=== PATIENT | male | born 1955 | race Caucasian/White ===

== ENCOUNTER 2017-04-07 13:07 | Emergency (ER) | payer OTHER ==
[~2017-04-07] VITALS: Ht 185.4 cm; Wt 136.1 kg
[~2017-04-07 13:07] MED LIST: CLARITIN10 MG PO; CYCLOBENZAPRINE10 MG PO; EXCEDRIN TENSI1 EACH PO; HTN MEDICATION; METFORMIN HCL500 MG PO; NORCO 5-325 TA1 EACH PO
[2017-04-07] MEDS ORDERED: LOSARTAN-HCTZ1 EAC1 PO (13:36)
[2017-04-07] MEDS ORDERED: COZAAR50 MG PO (13:36)
[2017-04-07] MEDS ORDERED: CYCLOBENZAPRINE10 MG PO (15:18)
[2017-04-07] MEDS ORDERED: NORCO 7.5-3251 EACH PO (15:18)
[2017-04-07] MEDS ORDERED: NAPROSYN500 MG PO (15:18)
[2017-04-07] MEDS ORDERED: MEDROL4 M1 PO (15:18)
== END 2017-04-07 15:25 | disposition home or self-care (01) ==
LOC: ED 13:07
DX: M54.9 Dorsalgia, unspecified (principal); I10 Essential (primary) hypertension; Z90.49 Acquired absence of other specified parts of digestive tract; Z88.5 Allergy status to narcotic agent; Z79.899 Other long term (current) drug therapy
CPT/HCPCS: 71045; 74176; 80053; 81001; 83690; 85025; 96361; 96374; 96375; 96376; 99284; J1885; J2270; J2405; J7030

== ENCOUNTER 2018-05-10 11:31 | Emergency (ER) | payer OTHER ==
[~2018-05-10] VITALS: Ht 185.4 cm; Wt 136.1 kg
[~2018-05-10 11:31] MED LIST changes: +COZAAR50 MG PO; +LOSARTAN-HCTZ1 EAC1 PO; +MEDROL4 M1 PO; +NAPROSYN500 MG PO; +NORCO 7.5-3251 EACH PO
[2018-05-10] MEDS ORDERED: NORCO 5-325 TA1 EACH PO (12:49)
[2018-05-10] MEDS ORDERED: METHYLPREDNISOLO4 M1 PO (12:49)
== END 2018-05-10 13:35 | disposition home or self-care (01) ==
LOC: ED 11:31
DX: M25.511 Pain in right shoulder (principal); I10 Essential (primary) hypertension; Z88.5 Allergy status to narcotic agent
CPT/HCPCS: 73030; 99283

== ENCOUNTER 2020-05-09 00:37 | Observation (INO) | payer SELFPAY ==
[~2020-05-09] VITALS: Ht 185.4 cm; Wt 128.4 kg
[~2020-05-09 00:37] MED LIST changes: +COZAAR100 MG PO; +CYMBALTA30 MG PO; +HYDROCODON-ACE1 EA11 PO; +METHYLPREDNISOLO4 M1 PO
[2020-05-09] MEDS ORDERED: HYDROCHLOROTHIA25 MG PO (00:59)
[2020-05-09] MEDS ORDERED: EXCEDRIN EXTRA1 EAC1 PO ×2 (01:44)
--- NOTE | 2020-05-09 04:33 | NUR ---
PATIENT ARRIVED TO THE UNIT AT 0410. PATIENT DENIES FEELING [facility]HEAD[facility] VS STABLE. PATIENT REPORTS ONLY A MILD HEADACHE. IV FLUIDS STARTED PER ORDER. PATIENT DENIED NAUSEA OR ABD PAIN. BOWEL SOUNDS ARE ACTIVE. ABD IS SOFT. PATIENT ORIENTED TO THE ROOM. DENIED ANY FURTHER NEEDS. CALL LIGHT IN HAND.
--- NOTE | 2020-05-09 05:15 | NUR ---
PATIENT UP TO BSC. PATIENT DENIES FEELING LIGHTHEADED OR DIZZY. HR INCREASED FROM 70'S TO 120 WITH ACTIVITY. PATIENT VOIDED ONLY AND RETURNED TO BED.
--- NOTE | 2020-05-09 07:45 | NUR ---
PT IS AWAKE AND ALERT X4, COOPERATIVE. PT REQUIRES MINIMAL ASSISTANCE WITH CORD MANAGEMENT, THEN IS INDEPENDENT UP TO COMMODE AND BACK TO BED. PT DENIES NAUSEA AND SOB. REPORTS SOME MILD CRONIC SHOULDER AND BACK PAIN.
--- NOTE | 2020-05-09 08:26 | NUR ---
BOTH IV SITES ARE INTACT, NO REDNESS OR SWELLING NOTED, PT DENIES PAIN AT EITHER SITE. PT IS ALERT AND ORIENTED X4, COOPERATIVE. PT ABLE TO GET TO BEDSIDE COMMODE INDEPENDENTLY, USES CALL LIGHT APPROPRIATELY. PT C/O 5/10 BILAT SHOULDER AND BACK DISCOMFORT, 500 MG PO TYLENOL GIVEN. ALL VITALS ARE WNL. PT DENIES SOB AND DIZZINESS.
--- NOTE | 2020-05-09 09:15 | NUR ---
SPOKE WITH PATIENT IN ROOM. PATIENT AWAKE AND WATCHING TV. PATIENT LIVES WITH SPOUSE. SHE WILL PROVIDE RIDE HOME AT DISCHARGE. HIS PREFERENCE FOR DISCHARGE IS HOME. HE USES NO DME CURRENTLY EXCEPT THEY HAVE A SHOWER CHAIR. HE IS AWARE OF [facility] TO [facility]ORROW DME THEY USED IT AFTER A SURGERY HIS HAD. HE IS EMPLOYED, DRIVES SELF. HE HAS PCP. HE HAS NO INSURANCE CURRENTLY, AND HE CHOOSES THIS. HE STATES HE MAKES TOO MUCH FOR OHP. HE HAS BOUGHT POLICIES IN THE PAST THROUGH HOME BUT AFTER TIME THEY KEPT RAISING THE PREMIUMS TO HIGH. 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 HE FEELS HE CAN AFFORD MEDS/FOOD/UTILITIES. NO KNOWN BARRIERS AT THIS TIME TO DISCHARGE HOME.
--- NOTE | 2020-05-09 09:32 | NUR ---
PT CALLS APPROPRIATELY. REQUESTS TO GET UP TO BEDSIDE COMMODE, NEEDS ASSISTANCE WITH MONITOR CABLES ONLY. PT ABLE TO VOID. PT JORDAN 100% OF CLEAR LIQUID BREAKFAST. PT REMAINS ALERT AND ORIENTED X4, COOPERATIVE. PT REPORTS ON PAIN RELIEF FROM TYLENOL.
--- NOTE | 2020-05-09 11:10 | NUR ---
PATIENT ASKED FOR MY RETURN TO ROOM. SPOKE WITH HIM AGAIN AND HE STATES HE WAS THINKING IT WOULDN'T HURT TO SEE IF HE QUALIFIES FOR OHP AGAIN. I TOLD HIM I WOULD CALL OUR INSURANCE SPECAILIST SEDA AND LET HER KNOW. CALLED SEDA, SHE WILL COME SEE PATIENT.
--- NOTE | 2020-05-09 11:48 | NUR ---
PT SITTING UP IN BED WITH AT THE BEDSIDE. PT REPORTS "THAT TYLENOL DID NOTHING FOR MY PAIN" REFERING TO CRONIC BACK AND BILAT SHOULDER PAIN. WAITING FOR PRESCRIPTION HISTORY FROM PT'S HOME PHARMACY [facility] TO VERIFY WHAT NARCOTIC PAIN MEDICATIONS PT TAKES AT HOME. THEN WILL DISCUSS WITH .
--- NOTE | 2020-05-09 12:02 | NUR ---
PT'S JUST ARRIVED TO VISIT PT. HE IS ALERT, ORIENTED AND VERY OUTSPOKEN. PT DIDN'T SLEEP WELL, AND FEELS HE DID THE RIGHT THING HAVING HIS BRING HIM IN. WAITING NOW ON DR FINE, SORT OF PATIENTLY. GAVE BLESSING, REQUESTED THE MUSIC IN HALLWAY BE TURNED DOWN, SO NOTED. WILL FOLLOW
--- NOTE | 2020-05-09 12:26 | NUR ---
RECEIVED CALL FROM SEDA WHO STATES PATIENT IS OVER INCOME FOR OHP. PATIENT IS AWARE.
--- NOTE | 2020-05-09 14:43 | NUR ---
pt up to bedside commode multiple times to void in the last 2.5 hours, pt independent up to commode and back to bed. pt spouse is at the bedside.
--- NOTE | 2020-05-09 14:58 | NUR ---
IN PT ROOM FOR CONSULT. PT'S IS ALSO AT THE BEDSIDE.
[2020-05-09] MEDS ORDERED: VOLTAREN ARTHRI20 GM TOP (15:45)
--- NOTE | 2020-05-09 15:45 | NUR ---
MED REC COMPLETE
--- NOTE | 2020-05-09 16:12 | NUR ---
BOTH PT IV SITES ARE INTACT, NO REDNESS OR SWELLING NOTED, FLUIDS AND FLUSHES INFUSE EASILY. PT DENIES NAUSEA AND SOB, HOWEVER REPORTS "MY BACK AND SHOULDER PAIN IS STARTING TO CREEP BACK UP". PT REMAINS ALERT AND ORIENTED X4, COOPERATIVE. VITALS ARE ALL WNL.
--- NOTE | 2020-05-09 18:03 | NUR ---
PT OFFERED 2 TABS OF NORCO AT THIS TIME FOR 7/10 BILAT SHOULDER AND BACK PAIN THAT IS CRONIC. PT STATES "I'LL TAKE ONE, AND THEN IF THAT DOESN'T QUITE CUT IT, I'LL CALL FOR THE OTHER ONE". PT IS CURRENTLY WORKING ON CLEAR LIQUID DINNER TRAY. PT REMAINS ALERT AND ORIENTED. PT DENIES NAUSEA AND SOB AT THIS TIME VITALS ARE WNL. PT HAS BEEN UP TO THE BEDSIDE COMMODE MULTIPLE TIMES FOR LIQUID BM IN THE LAST 1.5 HOURS.
--- NOTE | 2020-05-09 20:03 | NUR ---
DISCUSSED PATIENT WITH WHO REQUEST THAT THE PATIENT DRINK A SECOND BOTTLE OF THE MIRALAX. DISCUSSED WITH PATIENT AND PROVIDED MEDICATION.
--- NOTE | 2020-05-09 20:20 | NUR ---
LABS DRAWN FROM RIGHT FA IV SITE. COLLECTED BY RN AND HANDED TO LAB STAFF. PATIENT DENIED ANY REQUEST.
--- NOTE | 2020-05-09 20:39 | NUR ---
PATIENT PROVIDED WITH SCHUELED MEDS. BSC EMPTIED FOR SOME LIQUID TERRANCE AND URINE MIXED. PATIENT DRINKING ON MIRALAX. IV FLUIDS PER ORDER, SITE WNL. PATIENT DENIES NAUSEA. REPORTS PAIN IN SHOULDER AND BACK IMPROVED. VS STABLE.
--- NOTE | 2020-05-09 22:10 | NUR ---
patient continues to have liquid stool that is ayala in color. no signs of bleeding. finished miralax dose.
--- NOTE | 2020-05-09 23:40 | NUR ---
PT ARRIVES TO ROOM FROM CCU. VS COMPLETED. IN ROOM. NO OTHER NEEDS AT THIS TIME. CALL LIGHT IN REACH.
--- NOTE | 2020-05-09 23:45 | NUR ---
PT ARRIVED TO THE FLOOR FROM CCU VIA BED, VITALS COMPLETED
--- NOTE | 2020-05-10 00:12 | NUR ---
PT STATES HE HAS 6/10 BACK PAIN, PRN PAIN MED PROVIDED. NO OTHER NEEDS AT THIS TIME. CALL LIGHT IN REACH.
--- NOTE | 2020-05-10 02:00 | NUR ---
PT AWAKE IN ROOM, WATCHING TV. NO NEEDS AT THIS TIME. CALL LIGHT IN REACH.
--- NOTE | 2020-05-10 05:49 | NUR ---
ASSESSMENT, VS AND I&O COMPLETED. PT STATES HE HAS A 5/10 HEADACHE BUT THAT IT IS TOLERABLE. ABD FIRM, OBESE, BOWEL TONES ACTIVE. PT HAD RAINEY-CLEAR BM IN THE BSC. CMS INTACT. PT DECLINES TO WEAR SCDs HE GETS UP TO THE BSC OFTEN. IVs WNL, IV FLUIDS INFUSING PER ORDER. NO OTHER NEEDS AT THIS TIME. CALL LIGHT IN REACH.
--- NOTE | 2020-05-10 06:15 | NUR ---
PT VSS, UOS. IVs WNL. LAST STOOL APPEARED RAINEY-CLEAR IN COLOR AND LIQUID ABOUT 0200. PT HAS HAD HEADACHE AND BACK PAIN, MANAGED WITH PRN MEDS. PT HAS BEEN MPO SINCE MIDNIGHT.
--- NOTE | 2020-05-10 07:31 | CONS ---
[facility] [address], [place] [address] Signed DATE OF CONSULTATION: 05/09/2020 CHIEF COMPLAINT: Rectal bleeding. HISTORY OF PRESENT ILLNESS: Isidro is a 64-year-old obese gentleman who awoke around midnight with diarrhea and bright red blood per rectum. He said that he really had no nausea or vomiting or abdominal pain. He came to emergency room for evaluation. He was admitted to the Internal Medicine Service. Initial hemoglobin was 14.6, it is down to 12.9 with hydration and p.o. intake. The mean cell volume is good at 86. BUN is good at 13. Liver function tests, INR all fine. He is already started on his bowel prep and I was asked to see him as a general surgeon on-call for consideration of upper and lower endoscopy. Although, I have helped Isidro's with endoscopy, he himself has never had upper or lower endoscopy. PAST MEDICAL HISTORY: 1. Hypertension. 2. Seasonal allergies. 3. Bilateral chronic shoulder pain. PAST SURGICAL HISTORY: Includes: 1. Bilateral ankle surgery. 2. Bilateral Achilles tendons, left meniscus. 3. Laparoscopic cholecystectomy. 4. Laminectomy from L4 down to S1. 5. Bilateral mandibular surgery with metal wire in his mouth. SOCIAL HISTORY: He does not smoke or drink. He is to Valerie at [phone]. They have no children. 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 They prefer [facility]. Dr. Afshan Jaime is primary care provider. FAMILY HISTORY: He gives no family history, although he told me his mother and father had . REVIEW OF SYSTEMS: He said despite all his surgery, he has had MRIs even with the wire in his mandible. That may be a CT scan, although he felt it was an MRI. ALLERGIES: Codeine. Electronically Signed By: DARCY FINE MD 05/10/20 0731 PATIENT NAME: AGUILA BRITO CONSULTATION DATE OF : 57 REPORT #: [id number] PHYSICIAN: DARCY FINE MD PCP: AFSHAN JAIME MD REPORT IS CONFIDENTIAL AND NOT TO BE RELEASED WITHOUT AUTHORIZATION [facility] [address] [place], [place] [address] Signed MEDICATIONS: 1. Loratadine. 2. Losartan. 3. Hydrochlorothiazide. 4. Excedrin Extra b.i.d., which includes aspirin and Tylenol. PHYSICAL EXAMINATION: VITAL SIGNS: His blood pressure is 133/87, heart rate 70, respiratory rate 13, temperature is 98.6. He is 97% on room air. He is 6 feet 1 inches tall, 120 kg. GENERAL: Isidro is a 64-year-old gentleman, who appears about his stated age. He is a very full heavy pedersen. He is lying supine semi-recumbent in his hospital bed, watching TV. His is at the bedside. LUNGS: Clear to auscultation bilaterally. HEART: Regular rate and rhythm. ABDOMEN: Quite protuberant and obese, but soft. RECTAL: Not repeated currently. LABORATORY DATA: His white blood count is 7.7, hemoglobin is 14.6, it is down to 12.9, mean cell volume is good at 86, BUN 13, creatinine 1.04. Liver function tests are negative, albumin 3.9. COVID is negative. INR is 1.0. ASSESSMENT AND PLAN: Isidro is a 64-year-old gentleman who presents with some diarrhea and rectal bleeding while taking Excedrin twice a day for several years. Overall, he seems to be doing well and has been hemodynamically stable. He is about fpc through the bowel prep. He has had to have any additional bowel movement. I explained him upper and lower endoscopy. His reminded me that I helped her with her endoscopies. They understand there is risk including, but not limited to gas bloating, crampy abdominal pain, bleeding, perforation requiring surgery, and missed diagnosis. Also given his full-size heavy face and pedersen, we will ask an anesthesia provider to help us with increased monitoring and sedation with propofol. Hopefully, we will be able to schedule this for the morning depending on his bowel prep. They have expressed understanding and agreed with the above plan. Darcy Fine MD ALB/MODL /[id number] Electronically Signed By: DARCY FINE MD 05/10/20 0731 PATIENT NAME: AGUILA BRITO CONSULTATION DATE OF : 57 REPORT #: [id number] PHYSICIAN: DARCY FINE MD PCP: AFSHAN JAIME MD REPORT IS CONFIDENTIAL AND NOT TO BE RELEASED WITHOUT AUTHORIZATION [address] [address] Signed cc: MD Afshan Tolentino MD Copies: DARCY FINE MD ~ Electronically Signed By: DARCY FINE MD 05/10/20 0731 PATIENT NAME: AGUILA BRITO CONSULTATION DATE OF : 57 REPORT #: [id number] PHYSICIAN: DARCY FINE MD PCP: AFSHAN JAIME MD REPORT IS CONFIDENTIAL AND NOT TO BE RELEASED WITHOUT AUTHORIZATION
--- NOTE | 2020-05-10 07:57 | NUR ---
REPORT RECEIVED FROM NIGHT RN AND PT. CARE RESUMED. PT. AMBULATING INDEPENDENTLY TO BEDSIDE COMMODE AND HAS A RAINEY LIQUID STOOL. LABS DRAWN BY THIS NURSE. PT. UP TO BEDSIDE COMMODE A SECOND TIME. STATES HE HAS TOLERABLE SHOULDER PAIN AND REPOSITIONED. LEFT RESTING WITH CALL LIGHT IN REACH.
--- NOTE | 2020-05-10 08:30 | NUR ---
REPORT RECEIVED FROM NIGHT RN AND PT. CARE RESUMED. PT. REPORTS 09/06 PAIN FROM HEADACHE AND CHRONIC BACKPAIN. ADMIN. NORCO. PT. ALERT AND ORIENTED. LUNGS CLEAR. PT. DENIES AND PAIN OR TENDERNESS IN ABD. BOWEL TONES ACTIVE. PT. HAD A WATERY BM WITH BLOOD. NO EDEMA. PT. CONCERNED ABOUT A SMALL PINPOINT BUMP ON LEFT CALF AND ASKED FOR A DRESSING TO BE PLACED OVER IT TO PREVENT IT FROM OPENING. PLACED A SMALL ALLEVYN OVER IT. PT. LEFT RESTING IN BED WITH CALL LIGHT IN REACH.
--- NOTE | 2020-05-10 10:01 | NUR ---
PATIENT IS IN SURGERY CANNOT DO VITALS AT THIS TIME
--- NOTE | 2020-05-10 10:10 | NUR ---
05/10/20 1010 June Ramsey 0959 PATIENT INTO PACU, WITH ORAL AIRWAY IN PLACE. DOES NOT RESPOND TO PHYSICAL OR VERBAL STIMULI. 1008 PATIENT GROANS TO VERBAL STIMULI. RESTING ON LEFT SIDE. PASSING ACTIVE FLATUS.
--- NOTE | 2020-05-10 10:51 | NUR ---
PATIENT BACK FROM UPPER AND LOWER SCOPE. REPORT RECEIVED FROM PACU NURSE, BRIA. PT. ARRIVED VIA STRETCHER. VITAL SIGNS STABLE. PT. DENIES PAIN. BOWEL TONES ACTIVE AND ABDOMEN SOFT, NON-TENDER. IN THE ROOM. PT. EDUCATED ON SAFETY. LEFT RESTING IN BED WITH CALL LIGHT IN REACH.
--- NOTE | 2020-05-10 11:23 | OR ---
[facility] [address] [place], [place] [address] Signed DATE OF OPERATION: 05/10/2020 SURGEON: Darcy Fine MD PREOPERATIVE DIAGNOSES: 1. Diarrhea. 2. Rectal bleeding. 3. Anemia with hemoglobin 12.9 and mean cell volume 89. POSTOPERATIVE DIAGNOSES: 1. Four small antral gastric ulcers. 2. Mild distal gastritis. 3. Pandiverticulosis. 4. Moderate internal hemorrhoids. 5. 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 6. A 12 mm pedunculated polyp at proximal right colon. 7. 4 mm polyp at 100 cm. 8. 5 mm polyp at hepatic flexure. 9. 5 mm polyp at cecum. 10. 4 mm polyp in right colon. 11. 6 mm polyp at 80 cm. 12. 4 mm polyp at 10 cm. PROCEDURES: 1. EGD with CLOtest and biopsies of the pyloric bulb and antrum. 2. Colonoscopy with snare polypectomy and hot biopsy as well as injection of tattoo. ESTIMATED BLOOD LOSS: Minimal. INDICATIONS: Isidro is a 64-year-old gentleman who came into the emergency room with some diarrhea and rectal bleeding. He said there was no nausea, vomiting, or abdominal pain. He was admitted to the Internal Medicine service. I have been asked to see him as a general surgeon on-call. With hydration, his hemoglobin is slightly low at 12.9 with a mean cell volume normal at 86. BUN was fine at 13. Liver function tests were fine and his albumin was good at 3.9. His COVID came back negative. I met with Isidro and his here in the hospital. They reminded me that I helped his with endoscopy previously. However, Isidro has never had a previous upper or lower endoscopy. I explained to them the nature of the two tests along with the risks including, but not Electronically Signed By: DARCY FINE MD 05/10/20 1123 PATIENT NAME: AGUILA BRITO OPERATIVE REPORT DATE OF : 57 REPORT #: [id number] PHYSICIAN: DARCY FINE MD PCP: AFSHAN PACHECO MD REPORT IS CONFIDENTIAL AND NOT TO BE RELEASED WITHOUT AUTHORIZATION [facility] [address] [place], [place] [address] Signed limited to gas bloating, crampy abdominal pain, bleeding, perforation requiring surgery, and missed diagnosis. They had expressed understanding and wished to proceed. DESCRIPTION OF PROCEDURE: Isidro was taken into the operating room and placed in the supine semi-recumbent position. He is a very large man with a very heavy full face pedersen, chest and abdomen. Consequently, we had an anesthesia provider to help us with increased monitoring and sedation with propofol. That proved to be a maria decision. A bite block was utilized for the case. The posterior oropharynx was anesthetized with lidocaine spray. A bite block was utilized for the case. The adult gastroscope was introduced and advanced all the way out into the third portion of the duodenum without difficulty. The duodenum and pyloric channel were generally unremarkable. There may have been a little irritation at the pyloric bulb, so took one biopsy at that area. However, the stomach showed multiple small ulcers 4 or 5 at the base of the antrum. Very classic for aspirin. He is using daily Excedrin for several years. None of these are bleeding. They will heal fine as soon as he stops the aspirin. We took a biopsy in this area for pathologic review as well as CLOtest. The incisura body and fundus of the stomach were unremarkable. Upon retroflexion of scope, there was no additional pathology noted up around the cardia. There was no obvious hiatal hernia. The scope was withdrawn up through the area of the GE junction, which was compliant without stricture. There was no gastric or esophageal varices. No disruption to the Z-line. No Rose's mucosa. No distal esophagitis. The middle and upper esophagus were unremarkable. After this, the gas was suctioned out and the gastroscope removed. Isidro tolerated his upper endoscopy quite well. Isidro was then rotated into the left lateral decubitus position. He was maintained on IV sedation with propofol per our nurse cat scan technologist. A digital rectal exam was performed and he does have a moderately indurated and enlarged prostate gland. The adult colonoscope was then introduced and advanced all around into the cecum under direct visualization of camera with some mild abdominal compression. His prep was good. We could easily see the appendiceal orifice and the ileocecal valve. The scope was then slowly withdrawn. The above-mentioned polyps were mostly removed with the help of hot biopsy forceps. We did use the snare for the pedunculated polyp in the proximal right colon. We also found his nearly circumferential tumor back at 35 cm. We took multiple cold biopsies of this tumor and then placed a tattoo in the distal end of that tumor at 35 cm. We can also see that he has moderate diverticula throughout the entire colon. Interestingly, he does not seem to have any diverticula distal to the tumor down toward the top of the rectum. Once in the rectum, the scope had been retroflexed and he does have moderate internal hemorrhoids as well. After this, the gas was suctioned out and the colonoscope removed. Isidro tolerated the procedure quite well. RECOMMENDATIONS: Isidro will be returned to his room and start him back on diet. He will need a CEA Electronically Signed By: DARCY FINE MD 05/10/20 1123 PATIENT NAME: AGUILA BRITO OPERATIVE REPORT DATE OF : 57 REPORT #: [id number] PHYSICIAN: DARCY FINE MD PCP: AFSHAN PACHECO MD REPORT IS CONFIDENTIAL AND NOT TO BE RELEASED WITHOUT AUTHORIZATION [address] [place], [place] [address] Signed level drawn. He will need an outpatient CT scan of the chest, abdomen and pelvis and need a sigmoid resection for his tumor. MD MIRELA Tolentino/KARONL /[id number] cc: MD Afshan Tolentino MD Copies: DARCY FINE MD ~ Electronically Signed By: DARCY FINE MD 05/10/20 1123 PATIENT NAME: AGUILA BRITO OPERATIVE REPORT DATE OF : 57 REPORT #: [id number] PHYSICIAN: DARCY FINE MD PCP: AFSHAN PACHECO MD REPORT IS CONFIDENTIAL AND NOT TO BE RELEASED WITHOUT AUTHORIZATION
--- NOTE | 2020-05-10 11:55 | NUR ---
PATIENT STATES HE HAS A "BAD" HEADACHE. REFUSED TYLENOL AND STATES IT DOES NOT WORK. WILL WAIT FOR [place] WHEN IT IS AVAILABLE. PT. STATES HE HAS AMBULATED INDEPENDENTLY TO THE BATHROOM TWICE AND DENIES DIZZINESS. HE STATES HE STILL HAS A SMALL AMOUNT OF WATERY DIARRHEA. IN ROOM.
--- NOTE | 2020-05-10 12:00 | NUR ---
ALL DISCHARGE INSTRUCTIONS REVIEWED WITH PATIENT AND ALL QUESTIONS ANSWERED. PRESENT. LEFT BY WHEEL CHAIR AND PICKED UP BY CAR. PT. LEFT WITH ALL BELONGINGS, DENIES PAIN.
[2020-05-10] MEDS ORDERED: PROTONIX40 MG PO ×2 (12:47)
--- NOTE | 2020-05-15 15:35 | PATH ---
[facility] [address], [place] [address] Signed THIS IS AN ADDENDUM REPORT SPECIMEN(S): A DUODENAL BULB BIOPSY SPECIMEN(S): B ANTRUM/PYLORUS BIOPSY SPECIMEN(S): C PROXIMAL ASCENDING COLON POLYP SPECIMEN(S): D COLON POLYP AT 100 CM SPECIMEN(S): E HEPATIC FLEXURE COLON POLYP SPECIMEN(S): F CECUM COLON POLYP SPECIMEN(S): G MID ASCENDING COLON POLYP SPECIMEN(S): H COLON POLYP AT 80 CM SPECIMEN(S): I COLON POLYP MASS AT 35 CM SPECIMEN(S): J COLON POLYP AT 10 CM SPECIMEN SOURCE: A. DUODENAL BULB BIOPSY B. ANTRUM/PYLORUS BIOPSY C. PROXIMAL ASCENDING COLON POLYP D. COLON POLYP AT 100 CM E. HEPATIC FLEXURE COLON POLYP F. CECUM COLON POLYP G. MID ASCENDING COLON POLYP H. COLON POLYP AT 80 CM I. COLON POLYP MASS AT 35 CM J. COLON POLYP AT 10 CM CLINICAL HISTORY: Diarrhea, rectal bleeding, anemia, GI bleed. DX: Gastric ulcer x 4, gastritis/polyps, pandiverticulosis. MICROSCOPIC DESCRIPTION: Histologic sections of all submitted blocks are examined by light microscopy. These findings, together with the gross examination, support the pathologic diagnosis. FINAL PATHOLOGIC DIAGNOSIS: A. Duodenum, bulb, biopsy: - Duodenal mucosa with mild peptic injury. B. Stomach, antrum/pylorus, biopsy: - Gastric antral mucosa with no significant pathologic changes. - Negative for Helicobacter pylori with HE stains. C. Colon, proximal ascending, polypectomy: - Tubulovillous adenoma with high-grade dysplasia. PATIENT NAME: AGUILA BRITO PATHOLOGY DATE OF : 57 REPORT #: [id number] PHYSICIAN: [facility] PCP: MARIETTA PACHECO MD REPORT IS CONFIDENTIAL AND NOT TO BE RELEASED WITHOUT AUTHORIZATION [facility] [address], [place] [address] Signed D. Colon, 100 cm, polypectomy: - Tubular adenoma. E. Colon, hepatic flexure, polypectomy: - Tubular adenoma. F. Cecum, polypectomy: - Sessile serrated polyp. G. Colon, mid ascending, polypectomy: - Colonic mucosa with no significant pathologic changes. H. Colon, 80 cm, polypectomy: - Tubular adenoma. I. Colon, 35 cm, polypectomy: - Invasive adenocarcinoma, well differentiated. - See comment. J. Colon, 10 cm, polypectomy: - Colonic mucosa with no significant pathologic changes. COMMENT: As part of [facility]' Quality Improvement Program, this case was reviewed by Dr. Leona Acuna another member of our pathology staff. BRP:NRT:bg:vlg:C2NR (I) Screening for microsatellite instability by immunohistochemistry has been ordered and will be reported in an addendum. A diagnostic alert is initiated by Dr. Dr. Sammy San on 05/14/2020. GROSS DESCRIPTION: Ten specimens are received in ten containers, labeled "GC." A. The specimen, labeled "GC, duodenal bulb biopsy," is received in formalin and consists of one ayala soft tissue fragment that measures 0.4 cm in greatest dimension. The specimen is entirely submitted in cassette (A1). B. The specimen, labeled "GC, antrum biopsy," is received in formalin and consists of two ayala soft tissue fragments that measure 0.1 cm in greatest dimension. The specimen is entirely submitted in cassette (B1). C. The specimen, labeled "GC, proximal ascending colon polyp," is received in formalin and consists of one ayala soft tissue fragment that measures 1.6 cm in greatest dimension. The specimen is trisected and entirely submitted in cassette (C1). D. The specimen, labeled "GC, colon polyp at 100 cm," is received in formalin and consists of one ayala soft tissue fragment that measures 0.2 cm in greatest dimension. The specimen is entirely submitted in cassette (D1). PATIENT NAME: AGUILA BRITO PATHOLOGY DATE OF : 57 REPORT #: [id number] PHYSICIAN: ZEN PARMAR PCP: MARIETTA PACHECO MD REPORT IS CONFIDENTIAL AND NOT TO BE RELEASED WITHOUT AUTHORIZATION [facility] [address], [place] [address] Signed E. The specimen, labeled "GC, hepatic flexure polyp," is received in formalin and consists of one ayala soft tissue fragment that measures 0.2 cm in greatest dimension. The specimen is entirely submitted in cassette (E1). F. The specimen, labeled "GC, cecum polyp," is received in formalin and consists of three ayala soft tissue fragments that measure 0.2 cm in greatest dimension. The specimen is entirely submitted in cassette (F1). G. The specimen, labeled "GC, mid ascending colon polyp," is received in formalin and consists of one ayala soft tissue fragment that measures 0.2 cm in greatest dimension. The specimen is entirely submitted in cassette (G1). H. The specimen, labeled "GC, colon polyp at 80 cm," is received in formalin and consists of one ayala soft tissue fragment that measures 0.3 cm in greatest dimension. The specimen is entirely submitted in cassette (H1). I. The specimen, labeled "GC colon polyp at 35 cm," is received in formalin and consists of three ayala soft tissue fragments that measure 0.2-0.3 cm in greatest dimension. The specimen is entirely submitted in cassette (I1). J. The specimen, labeled "GC, colon polyp at 10 cm," is received in formalin and consists of one ayala soft tissue fragment that measures 0.2 cm in greatest dimension. The specimen is entirely submitted in cassette (J1). JS (under the direct supervision of a pathologist) The Gross Description was prepared using a voice recognition system. The report was reviewed for accuracy; however, sound-alike word errors, addition and/or deletions may occur. If there is any question about this report, please contact Client Services. PERFORMING LABORATORY: The technical component was performed by [facility], [address] [place] [id number] (Supervisor Filter Assembly: Serena Diaz MD; CLIA# [id number]). [facility], [address] [place] [address] (CLIA# [id number]). COMMENT: Tumor cells show no loss of nuclear expression of MMR proteins. This correlates with a low probability of microsatellite instability. 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 Please contact [facility] if such testing is indicated. BRP:cml ADDITIONAL NOTES: Immunohistochemical and/or in situ hybridization studies were performed on this case with the appropriate positive controls that react as expected. This test was developed and its performance characteristics determined by [facility]. It has not been cleared or approved by the U.S. Food and Drug Administration. The FDA has determined that such clearance or approval is not necessary. This test is used for clinical purposes. It should not be regarded as investigational or for research. [facility] is certified under the Clinical Laboratory Improvement Amendments of 1988 (CLIA) as qualified to perform high complexity clinical laboratory testing. REASON FOR ADDENDUM: To add results of additional testing. ADDENDUM PATHOLOGIC DIAGNOSIS: Colon, 35 cm polypectomy, adenocarcinoma, microsatellite instability testing by IHC: - MLH1: Intact nuclear expression. - MSH2: Intact nuclear expression. - MSH6: Intact nuclear expression. - PMS2: Intact nuclear expression. INTERPRETATION: Normal pattern. ADDENDUM MICROSCOPIC EXAMINATION: A panel of four antibodies is selected which will detect 95% of microsatellite unstable carcinomas. Testing is performed at the request of Sammy San M.D. Block: I1. Recut HE slide is prepared from the block. The presence of neoplastic glands and non-neoplastic internal control glands or stroma is confirmed. Internal control cells for MLH1, MSH2, PMS2 and MSH6 are positive. Neoplastic gland cells show the following: - MLH1: Positive. - MSH2: Positive. - MSH6: Positive. PATIENT NAME: AGUILA BRITO PATHOLOGY DATE OF : 57 REPORT #: [id number] PHYSICIAN: ZEN PATHOLOGY PCP: MARIETTA PACHECO MD REPORT IS CONFIDENTIAL AND NOT TO BE RELEASED WITHOUT AUTHORIZATION [facility] [address], [place] [address] Signed - PMS2: Positive. BRP:cml [facility] [place], [place]. Professional interpretation was performed by [facility], [address] [address] (CLIA# [id number]). Diagnostician: Sammy San MD Pathologist Electronically Signed 05/15/2020 Copies: ~ PATIENT NAME: AGUILA BRITO PATHOLOGY DATE OF : 57 REPORT #: [id number] PHYSICIAN: ZEN PARMAR PCP: MARIETTA PACHECO MD REPORT IS CONFIDENTIAL AND NOT TO BE RELEASED WITHOUT AUTHORIZATION
== END 2020-05-10 13:50 | disposition home or self-care (01) ==
LOC: ED 00:37 → CCU 00:39 → MS 23:44
PROVIDERS: Colon & Rectal Surgery; ADMIT Internal Medicine; ATTEND Internal Medicine
PROC: 0DBK8ZX Excision of Ascending Colon, Via Natural or Artificial Opening Endoscopic, Diagnostic (ICD-10-PCS; 2020-05-10)
PROC: 0DBH8ZX Excision of Cecum, Via Natural or Artificial Opening Endoscopic, Diagnostic (ICD-10-PCS; 2020-05-10)
PROC: 0DBL8ZX Excision of Transverse Colon, Via Natural or Artificial Opening Endoscopic, Diagnostic (ICD-10-PCS; 2020-05-10)
PROC: 3E0H8KZ Introduction of Other Diagnostic Substance into Lower GI, Via Natural or Artificial Opening Endoscopic (ICD-10-PCS; 2020-05-10)
PROC: 0DB78ZX Excision of Stomach, Pylorus, Via Natural or Artificial Opening Endoscopic, Diagnostic (ICD-10-PCS; principal; 2020-05-10 08:15)
DX: K57.31 Diverticulosis of large intestine without perforation or abscess with bleeding (principal); K25.9 Gastric ulcer, unspecified as acute or chronic, without hemorrhage or perforation; K29.70 Gastritis, unspecified, without bleeding; K64.8 Other hemorrhoids; I10 Essential (primary) hypertension; G89.4 Chronic pain syndrome; Z88.5 Allergy status to narcotic agent; Z20.822 Contact with and (suspected) exposure to COVID-19; C18.9 Malignant neoplasm of colon, unspecified; D12.2 Benign neoplasm of ascending colon; D12.0 Benign neoplasm of cecum; D12.3 Benign neoplasm of transverse colon
CPT/HCPCS: 36415; 80053; 82378; 85025; 85610; 85730; 86677; 86850; 86900; 86901; 86920; 96374; 96375; 96376; 99156; 99157; 99285-25; C9113; C9803; G0378; J1610; J2001; J2405; J2704; J3010; J7030; J7121; U0003

== ENCOUNTER 2020-05-11 13:08 | Inpatient (IN) | payer SELFPAY ==
[~2020-05-11] VITALS: Ht 185.4 cm; Wt 128.0 kg
[~2020-05-11 13:08] MED LIST changes: +EXCEDRIN EXTRA1 EAC1 PO; +HYDROCHLOROTHIA25 MG PO; +PROTONIX40 MG PO; +VOLTAREN ARTHRI20 GM TOP
--- OUTSIDE RECORDS SUMMARY | 2020-05-11 13:10 | XMS ---
PreManage Notification: AGUILA BRITO Security Mental Health Aides Teacher Events No recent Security Events currently on file CRITERIA MET - [facility] - 2 Visits in 30 Days CARE PROVIDERS There are no care providers on record at this time. Christiano has no Care Guidelines for this patient. [facility] NOTE: Visits indicate total known visits. ED/UCC VISIT TRACKING (12 MO.) [facility] COMPLAINT: - POSSIBLE RECTAL BLEEDING 05/09/2020 00:38 [facility] [place] TYPE: Emergency COMPLAINT: - RECTAL BLEEDING INPATIENT VISIT TRACKING (12 MO.) 05/09/2020 00:39 [facility] [place] TYPE: Observation COMPLAINT: - GI BLEED [email or web address]
--- NOTE | 2020-05-11 16:45 | NUR ---
PT TRANSFERRED TO CCU FROM ER VIA WHEELCHAIR PER PT REQUEST. PT DENIES PAIN OR NAUSEA. AMBULATES INDEPENDENTLY. LUNGS CLEAR, RA. ACTIVE BTX4 QUADRANTS. TOLERATING BOWEL PREP WELL AT THIS TIME. A&OX4. SKIN GROSSLY INTACT. PT TRANSFERS SELF TO BS AND IS PASSING SMALL AMOUNTS OF DARK RED, FOUL SMELLING, LIQUID STOOL. 18 IV TO LEFT AC, FLUSHES EASILY, NO REDNESS OR INFLAMMATION AT INSERTION SITE. PT DECLINES SCD'S DUE TO HIS NEED TO GET OUT OF BED SO OFTEN FOR BM. AT BEDSIDE. CALL LIGHT WITHIN REACH.
--- NOTE | 2020-05-11 19:54 | NUR ---
PATIENT HAS FINISHED BOWEL PREP AND IS HAVING FREQUENT DARK RED THICK LIQUID STOOLS. PATIENT IS INDEPENDENT IN THE ROOM AND IS AT BEDSIDE. NO DIZZINESS, PAIN AND SOB. NO NAUSEA. VS STABLE.
--- NOTE | 2020-05-11 21:04 | NUR ---
PATIENT CONTINUES TO HAVE FREQUENT STOOLS, THINNER AND RED IN COLOR. PATIENT DENIES ANY CONCERNS.
--- NOTE | 2020-05-11 23:00 | NUR ---
PATIENT UP TO THE BATHROOM INDEPENDENTLY. CONTINUES TO HAVE SMALL RED COLORED LIQUID OUTPUT PER RECTUM MIXED WITH URINE. PATIENT DENIES FEELING DIZZY. HR 60'S AT REST, 100'S WITH ACTIVITY. IV FLUIDS PER ORDER, SITE WNL.
--- NOTE | 2020-05-12 00:33 | NUR ---
PATIENT SLEEPING SOUNDLY. ALLOWED PATIENT TO REST. CALL LIGHT IN REACH.
--- NOTE | 2020-05-12 02:29 | NUR ---
NEW BAG OF IV FLUIDS STARTED. PATIENT HAS NOT BEEN UP FOR A FEW HOURS TO HAVE BM. REPORTS LAST BM WAS CLEAR. VS STABLE. PATIENT DENIES PAIN OR NAUSEA.
--- NOTE | 2020-05-12 05:00 | NUR ---
PATIENT REPORTS VOIDING BUT NO BM THIS MORNING. IV FLUIDS PER ORDER, SITE WNL. PATIENT ON TELE, HR AND O2 SATS WNL. PATIENT DENIES NAUSEA OR PAIN. CALL LIGHT IN REACH.
--- NOTE | 2020-05-12 06:00 | NUR ---
PATIENT OFF TO THE OR WITH NIC RN. VS STABLE. PATIENT VOIDED. IV SITE FLUSHED, WNL.
--- NOTE | 2020-05-12 06:06 | CONS ---
[facility] [address], [place] [address] Signed DATE OF CONSULTATION: 05/11/2020 CHIEF COMPLAINT: Rectal bleeding. HISTORY OF PRESENT ILLNESS: Isidro is a 64-year-old gentleman, who just underwent his upper and lower endoscopy 2 days ago per myself. He has been using Excedrin twice a day for several years and end up with several small ulcers in the bottom of his antrum. He also has pandiverticulosis and a tumor in his sigmoid colon at 35 cm. Of course, we took biopsies of the tumor. He also had a pedunculated polyp in the proximal right colon, requiring the snare and then multiple other polyps in the colon including 100 cm hepatic flexure, cecum, right colon 80 cm, and then down in the rectum at 10 cm, all requiring hot biopsy forceps. He was discharged home, doing fine and he has been having some blood per rectum and feeling dizzy. He had called me earlier today, so I asked him to come the emergency room for evaluation. The hemoglobin is down around 11.1, it was over 12 before he was discharged a couple of days ago. He has had a little blood in the toilet here. The ER doctor gave him tranexamic acid. He got a couple of units typed and crossed and being held. I was asked obviously see him here in the emergency room. We will be placing him down to our ICU. It is getting a bit late. I think we are going to have to palpable him tonight and will scope him 1st thing in the morning. PAST MEDICAL HISTORY: Hypertension, seasonal allergies, bilateral chronic shoulder pain. PAST SURGICAL HISTORY: Includes bilateral ankle surgery, bilateral Achilles tendon surgery, left meniscus surgery, cholecystectomy, laminectomy from L4-S1 and his mandible surgery with wire remaining. SOCIAL HISTORY: He does not smoke or drink. He is to Valerie at [phone]. They have no children. 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 FAMILY HISTORY: None. REVIEW OF SYSTEMS: He had 10 systems reviewed and really nothing new since I saw him 2 days ago of the rectal bleeding. ALLERGIES: Electronically Signed By: DARCY FINE MD 05/12/20 0606 PATIENT NAME: AGUILA BRITO CONSULTATION DATE OF : 57 REPORT #: [id number] PHYSICIAN: DARCY FINE MD PCP: AFSHAN PACHECO MD REPORT IS CONFIDENTIAL AND NOT TO BE RELEASED WITHOUT AUTHORIZATION [facility] [address], [place] [address] Signed Codeine. MEDICATIONS: Loratadine, losartan, hydrochlorothiazide, diclofenac gel. PHYSICAL EXAMINATION: VITAL SIGNS: Blood pressure is 90/52, heart rate 73, respiratory rate 18, temperature is 98.8, he is 100% on room air. He is 6 feet and 1 inch tall, 128 kg. GENERAL: Isidro is a 64-year-old gentleman, lying supine semi-recumbent in his ER bed watching TV. His is at the bedside. He is alert, awake, and interactive. He is not particularly pale. He is not short of breath. He is a good historian. LUNGS: Clear to auscultation bilaterally. HEART: Regular rate and rhythm. ABDOMEN: Obese, but soft and nontender, did not repeat the rectal exam today. LABORATORY DATA: His white blood count 11.6, hemoglobin 11.3, neutrophils 81, and platelets 370. BUN is 9, creatinine is 1.10. His liver function tests are negative. Albumin 3.5. His COVID test is negative from 2 days ago. The repeat COVID test is pending. RADIOGRAPHIC STUDIES: None. ASSESSMENT AND PLAN: Isidro is a 64-year-old gentleman, who is having what appears to be a lower gastrointestinal bleed after his upper and lower endoscopy just two days ago. He has had multiple biopsies as described above. He could be bleeding from the tumor, but he could be bleeding from our polypectomy sites. In that regard, we are going to put him through liquid diet and some laxatives tonight. We will scope him 1st thing in the morning. Hopefully, we will stay clean if we can find the site of bleeding. I discussed with him the tumor over the phone. We discussed again today and he understands it is in the sigmoid colon, it is going to require surgery, but that needs some preoperative evaluation including a CT scan of chest, abdomen, and pelvis. Also, the CEA levels been pending. He has expressed understanding and would like to proceed as above. Darcy Fine MD ALB/MODL /[id number] Electronically Signed By: DARCY FINE MD 05/12/20 0606 PATIENT NAME: AGUILA BRITO CONSULTATION DATE OF : 57 REPORT #: [id number] PHYSICIAN: DARCY FINE MD PCP: AFSHAN PACHECO MD REPORT IS CONFIDENTIAL AND NOT TO BE RELEASED WITHOUT AUTHORIZATION [facility] [address] [place] [place], [place] [address] Signed cc: MD Afshan Tolentino MD Copies: DARCY FINE MD ~ Electronically Signed By: DARCY FINE MD 05/12/20 0606 PATIENT NAME: AGUILA BRITO ISIDRO CONSULTATION DATE OF : 57 REPORT #: [id number] PHYSICIAN: DARCY FINE MD PCP: AFSHAN PACHECO MD REPORT IS CONFIDENTIAL AND NOT TO BE RELEASED WITHOUT AUTHORIZATION
--- NOTE | 2020-05-12 07:15 | NUR ---
PATIENT IN OR FOR COLONOSCOPY. REPORT RECIEVED.
--- NOTE | 2020-05-12 07:45 | NUR ---
RETURNED TO ROOM 126 S/P COLONOSCOPY. REPORT RECIEVED FROM SIGNAL OPERATOR. PATIENT IS AWAKE AND ALERT. DENEIS PAIN OR NAUSEA. 1 UNIT PRBC'S INFUSING. THIS IS PATIENTS 2ND UNIT TODAY. PATIENT IS TO RECIEVE A TOTAL OF 4 UNITS PRBC'S TODAY. ASSESSMENT DONE.
--- NOTE | 2020-05-12 08:00 | NUR ---
UP TO BR TO VOID AND PASS FLATUS. NO ACTIVE BLEEDING NOTED. STABLE ON FEET. DENIES DIZZINESS. TALKED WITH PATINET ABOUT POC FOR DAY, INDICATIES UNDESTANDING.
--- NOTE | 2020-05-12 08:03 | NUR ---
05/12/20 0803 Sharon Smith 0711 PT ARRIVED IN PACU NON RESPONSIVE TO NOXIOUS STIMULI WITH OPA IN PLACE. 0712 PT REACTIVE AND SPIT OUT OPA. 0720 2ND UNIT OF PRBC'S INFUSING. NO C/O'S. 0745 TO CCU. REPORT GIVEN TO CABRERA.
--- NOTE | 2020-05-12 10:28 | NUR ---
v/s and I&Os done pt used call light to notify that he needed to use the bathroom. box worker assisted. bed done. no other needs at this time. call light with in reach
--- NOTE | 2020-05-12 11:10 | NUR ---
FORTH UNIT PRBC'S HUNG, OR HUNG TWO UNITS DURING COLONOSCOPY THIS MORNING. PATIENT STATES HEADACE IS BETTER. IS IN ROOM. PATIENT IS WITHOUT C/O OF NAUSEA OR ABD PAIN.
--- NOTE | 2020-05-12 12:19 | NUR ---
SPOKE WITH PATIENT IN ROOM. SPOUSE IN ROOM ALSO. PATIENT AWAKE, ALERT. RECEIVED TRANSFUSION PRBC'S. PATIENT STATES NOTHING HAS CHANGED "SINCE YOU ASKED ME TUESDAY". PATIENT STATES HE WAS BLEEDING WHEN HE WAS AT HOME AND HAD TO COME BACK. PATIENT APPROPRIATE WITH CONVERSATION. HIS PREFERENCE CONTINUES TO BE TO HOME. STATES "HOPE NEXT TIME I CAN STAY LONGER". CM WILL FOLLOW NEEDED.
--- NOTE | 2020-05-12 13:23 | NUR ---
REPORT GIVEN TO RONY REES WHO WILL TAKE OVER NURSING CARE. PATIENT IS RESTFUL IN BED. DENIES ABD PAIN. TOLERATED PRBC'S WELL. NO ACTIVE BLEEDING NOTED AT THIS TIME. REMAINS NPO. PATIENT IS UNDERSTANDING.
--- NOTE | 2020-05-12 13:30 | NUR ---
REPORT RECEIVED FROM CABRERA HAN, THIS RN IN TO CONTINUE PLAN OF CARE. PT ALERT AND ORIENTED LAYING IN BED ON HIS IVF. PT REPORTS NO PAIN AT THIS TIME WHEN ASKED AND IS ON ROOM AIR. ASSESSMENT COMPLETE, VITALS TAKEN AND ARE STABLE. LABS DRAWN AT THIS TIME. AFTERWARDS PT NEEDED TO USE BATHROOM AND WAS ABLE TO GET UP UNASSISTED. PT ABLE TO WALK INTO BATHROOM VOID, AND HAD A SMALL RED CLOT/BLOOD IN THE TOILET. PT DENIES LIGHTHEADEDNESS AND WAS ABLE TO GET BACK INTO BED WITHOUT ASSISTANCE. PT REPORTS NO FURTHER NEEDS AT THIS TIME, IN BEDROOM WITH PT. CALL LIGHT IN REACH, BED IN LOWEST POSITION, WILL CONTINUE PLAN OF CARE.
--- NOTE | 2020-05-12 14:30 | NUR ---
DR. FINE UPDATED ON PT'S LAB VALUES VIA PHONE. NEW ORDERS GIVEN TO DECREASE MAINENANCE FLUIDS TO 100ML/HR, ORDER A CT CHEST AND PELVIS, AND MONITOR. WILL CONTINUE PLAN OF CARE.
--- NOTE | 2020-05-12 14:45 | NUR ---
THIS RN IN TO CHANGE RATE OF FLUIDS TO NEW ORDERED RATE AND UPDATE PT ON PLAN OF CARE AND PLANS FOR CT SCAN. PT LAYING IN BED AWAKE AND ALERT AT THIS TIME. NO FURTHER NEEDS REPORTED WHEN ASKED, WILL CONTINUE PLAN OF CARE. CALL LIGHT IN REACH, BED IN LOWEST POSITION, IVF INFUSING ORDERED.
--- NOTE | 2020-05-12 16:03 | NUR ---
PT ASKING FOR HIS IV PUMP TO BE PLUGGED BACK IN AND HIS URINAL TO BE EMPTIED. BOTH COMPLETED. PT AND PT'S SIGNIFICANT OTHER HAVE NO OTHER REQUESTS AT THIS TIME.
--- NOTE | 2020-05-12 16:09 | OR ---
[facility] [address], [place] [address] Signed DATE OF OPERATION: 05/12/2020 SURGEON: Darcy Fine MD PREOPERATIVE DIAGNOSES: 1. Rectal bleeding. 2. Personal history of colonic polyps. 3. Colon cancer at 35 cm. 4. Moderate internal hemorrhoids. POSTOPERATIVE DIAGNOSIS: Bleeding biopsy site at 35 cm/tumor. PROCEDURE: Colonoscopy with application of clip and cautery with hot biopsy forceps. ESTIMATED BLOOD LOSS: Minimal. INDICATIONS: Isidro is a 64-year-old gentleman, who came into the hospital for rectal bleeding. We did his upper and lower endoscopy two days ago. He had been using Excedrin twice a day for several years. He had multiple small ulcers in the antrum of the stomach consistent with the aspirin. However, they were not bleeding. The colonoscopy revealed multiple polyps, one of which required snare up near the cecum. He also has a tumor at 35 cm, it is nearly circumferential. It is a bit friable. He seemed to do well and had been discharged to home afterwards by the Internal Medicine Service. He called me over the weekend with rectal bleeding, so we had him come back into the emergency room. He was hemodynamically stable, but a little dizzy and his hemoglobin had dropped down to 11. We prepped him overnight and he continued to drop his hemoglobin down to about 8.8. Unfortunately, the nurse did not call me overnight. We did have blood available. He is brought down to the endoscopy suite this morning to repeat the colonoscopy. I explained to Isidro and his that more than likely this would be bleeding from the tumor, but it could be one of the polypectomy sites as well. Of course, they are quite familiar with endoscopy and its risks including, but not limited to gas bloating, crampy abdominal pain, bleeding, perforation requiring surgery, and missed diagnosis. They had expressed understanding and wished to proceed. DESCRIPTION OF PROCEDURE: Isidro was taken into our endoscopy suite and placed in the left lateral decubitus Electronically Signed By: DARCY FINE MD 05/12/20 1609 PATIENT NAME: AGUILA BRITO OPERATIVE REPORT DATE OF : 57 REPORT #: [id number] PHYSICIAN: DARCY FINE MD PCP: MARIETTA PACHECO MD REPORT IS CONFIDENTIAL AND NOT TO BE RELEASED WITHOUT AUTHORIZATION [facility] [address], [place] [address] Signed position. He was given propofol infusion by our nurse riveter pneumatic. That immediately dropped his blood pressure. We went ahead and brought in our 1st unit of blood and transfused that unit during the procedure. A rectal exam was performed and this was unremarkable. Really, no blood on the index finger. The adult colonoscope was then introduced and advanced under direct visualization of camera up past his tumor and all the way into the cecum itself. Of course, he had a bit of blood throughout the entire colon. We spent a lot of time around the proximal right colon and did not find any active bleeding from the polypectomy sites. We saw several other polypectomy sites as we withdrew the scope and again, no active bleeding. We spent some time around the tumor and we found one biopsy site with a soft clot probably a little bit of a red blood coming out from underneath. We went and placed a clip and next to that, it was bleeding just a bit, so we cauterized that gently. It seemed to provide good hemostasis. The distal sigmoid colon and rectum were unremarkable. We had retroflexed the scope in the rectum and no additional pathology was noted. After this, the gas was suctioned out and the colonoscope removed. Overall, Isidro tolerated the procedure well other than his hypotension and therefore, we had started his blood transfusions. Darcy Fine MD ALB/MODL /[id number] cc: MD Darcy Ballesteros MD Copies: DARCY FINE MD ~ Electronically Signed By: DARCY FINE MD 05/12/20 1609 PATIENT NAME: AGUILA BRITO OPERATIVE REPORT DATE OF : 57 REPORT #: [id number] PHYSICIAN: DARCY FINE MD PCP: MARIETTA PACHECO MD REPORT IS CONFIDENTIAL AND NOT TO BE RELEASED WITHOUT AUTHORIZATION
--- NOTE | 2020-05-12 16:14 | NUR ---
PT IS REQUESTING TO EAT AND TO KNOW WHEN HIS CT IS SCHEDULED. DISCUSSED WITH PT'S RN. DR. FINE CONTACTED TO SEE IF PT IS ALLOWED TO EAT SINCE HIS CT IS NOT SCHEDULED UNTIL TOMORROW. DR. FINE STATES THE PT IS TO REMAIN NPO AND THE CT WILL BE COMPLETED TOMORROW MORNING. PT UPDATED ON THIS AND AGREEABLE TO THIS PLAN OF CARE. PT'S RN AWARE TOO.
--- NOTE | 2020-05-12 16:30 | NUR ---
THIS RN IN TO ASSESS PT. PT AWAKE AND ALERT LAYING IN BED WITH AT BEDSIDE. VITALS STABLE, ASSESSMENT COMPLETE. PT HAS ACTIVE BOWEL TONES, STRONG PULSES, PT REPORTS NO PAIN AT THIS TIME WHEN ASKED. PT ON ROOM AIR AT THIS TIME, SPO2 AT 97%. PT REPORTS NO FURTHER NEEDS AT THIS TIME, WILL CONTINUE PLAN OF CARE. CALL LIGHT IN REACH, BED IN LOWEST POSITION, IN ROOM WITH PATIENT.
--- NOTE | 2020-05-12 17:51 | NUR ---
THIS RN IN TO CHECK ON PT. PT AWAKE AND ALERT LAYING IN BED. PT INFORMED ON HIS NEXT DOSE OF PROTONIX HE WAS CURIOUS ABOUT IT. PT REPORTS NO FURTHER NEEDS, IS STILL ON ROOM AIR, IVF INFUSING ORDERED. WILL CONTINUE PLAN OF CARE, CALL LIGHT IN REACH, BED IN LOWEST POSITION, IN ROOM WITH PT.
--- NOTE | 2020-05-12 18:40 | NUR ---
THIS RN IN TO CHECK ON PT AND EXAMINE STOOL. PT STATES HE HAD NO STOOL ONLY GAS AND HAD VOIDED. TOILET CONTAINED SMALL AMOUNTS OF BLOOD, UNABLE TO EXAMINE IF A CLOT WAS PRESENT DUE TO TOILET PAPER. PT REPORTS NO LIGHTHEADEDNESS AT THIS TIME BUT STATED HE WAS HAVING 4/10 PAIN ON HIS HEAD/HEADACHE. PT GIVEN PRN PAIN MEDICATION AT THIS TIME. PT REPORTS NO FURTHER NEEDS AT THIS TIME, IVF INFUSING ORDERED, WILL CONTINUE PLAN OF CARE. CALL LIGHT IN REACH, BED IN LOWEST POSITION, IN BEDROOM WITH PATIENT.
--- NOTE | 2020-05-12 20:15 | NUR ---
SHIFT REPORT RECEIVED FROM CABRERA MISTRY. ASSESSMENT COMPLETED AT THIS TIME. PT REPORTS HIS PAIN HAS IMPROVED TO 3/10 SINCE RECEIVING NORCO AND STATES THAT IS TOLERABLE FOR HIM. LUNGS CLEAR, RA. HR REGULAR, TELE #10. BOWEL TONES ACTIVE. PT DENIES NAUSEA. CMS INTACT. IV SITES INTACT, FLUIDS INFUSING WNL. DISCUSSED PLAN OF CARE WITH PT AND , ALL QUESTIONS ANSWERED. CALL LIGHT WITHIN REACH.
--- NOTE | 2020-05-12 21:08 | NUR ---
EVENING MEDS GIVEN PER EMAR. PT UP TO BATHROOM INDEPENDENTLY TO VOID AND BACK TO BED. NO FURTHER REQUESTS AT THIS TIME.
--- NOTE | 2020-05-12 22:56 | NUR ---
REPORT CALLED TO CABRERA NARAYAN. PT TRANSFERRED TO ROOM 107 BY BED WITH ALL BELONGINGS.
--- NOTE | 2020-05-12 23:03 | NUR ---
pt RESTING IN HOSPTIAL BED. TV REMOTE PROVIDED. IVF INFUSING ORDERED. pt RATES PAIN 4/10 "ALL OVER MY BODY". DENIES NEED FOR ADDITIONAL PAIN MEDICATION AT THIS TIME. CALL LIGHT IN REACH.
--- NOTE | 2020-05-13 01:09 | NUR ---
pt RESTING IN BED WITH EYES CLOSED, SPO2 91% ON CPOX, HR 60. NEW BAG IVF INFUSING WNL. LIGHTS OFF IN ROOM.
--- NOTE | 2020-05-13 03:05 | NUR ---
CALL LIGHT ANSWERED. URINE HAT EMPTIED. pt BACK IN BED, DENIES NEED FOR PRN PAIN MEDICATION. BOWEL TONES ACTIVE X 4, ABD SOFT, DISTENDED. IVF INFUSING WNL ORDERED. SITTING UP, WATCHING TV AT THIS TIME. PROVIDED WITH PO FLUIDS, SNACKS. QUESTIONS ANSWERED REGARDING PLAN FOR DAY, CT. CALL LIGHT WITHIN REACH.
--- NOTE | 2020-05-13 05:19 | NUR ---
CALL LIGHT ANSWERED. pt REQUESTING PRN PAIN MEDICATION FOR 5/10 REPORTED PAIN "ALL OVER". PO MEDICATION ADMINISTERED WITH SMALL SIP OF WATER. VSS. URINE HAT EMPTIED. CALL LIGHT WITHIN REACH. pt IS AWAKE, WATCHING TV.
--- NOTE | 2020-05-13 08:04 | NUR ---
Patient resting in bed. Second and final contrast consumed per pt report. Patient educated on plan of care this morning. at bedside visiting. No needs at this time. Personal supplies and call light within reach.
--- NOTE | 2020-05-13 09:00 | NUR ---
Spoke with Leoncio and his . He is wanting to know if he is on the [facility]. Informed I will call Dorothy to check. He denies other needs. States he does not want a large bill. Spoke with Dorothy and pt is over income for OHP. She gave pt a financial packet on last admission. Spoke with pt and updated. He states papers are in his closet and encouaged he and his to complete. Pt stating he will be off work for 6-8 weeks.
--- NOTE | 2020-05-13 09:32 | NUR ---
PATIENT UP TO BATHROOM AND BACK TO BED, SBA. IN ROOM. VITALS AND I&O'S CHARTED. CALL LIGHT IN REACH. NO FURTHER NEEDS AT THIS TIME.
--- NOTE | 2020-05-13 12:21 | NUR ---
PT ALERT, ORIENTED AND SUPPORTED BY HIS IN RM. PT NOT AFRAID TO SPEAK HIS MIND, ALWAYS APPROPRIATELY. PT MENTIONED THAT HE WAS HAPPY HE WAS ABLE TO GET SOME SLEEP LAST NIGHT. NO BLOOD IN STOOL, TRIED TO ENCOURAGE PT. FEELS HE WAS MOVED TO M/S BECAUSE THEY NEEDED THE SPACE. DISCUSSED THAT HE WOULD NOT HAVE BEEN MOVED IF HE WAS NOT IMPROVING. ECHOED THIS AND HE ACKNOWLEDGED. PT ENCOURAGED TO KEEP POSITIVE, AND PARTICIPATE IN ALL POA. GAVE BLESSING, WILL CONTINUE TO FOLLOW
--- NOTE | 2020-05-13 12:53 | NUR ---
Doucette one tab 5/325mg po admin for reports of 6/10 generalized pain. Fresh water provided to patient.
--- NOTE | 2020-05-13 15:54 | NUR ---
Rounded on patient. Patient in bed visiting with . Patient reports his pain has improved and is tolerable at this time. No nauesa reported, + bowel tones x4. Patient asking to speak with a hospital resource for medical application assistance. Called Dorothy, no answer at this time. Will pass off to morning crew to call Dorothy again in the morning. No further needs at this time.
--- NOTE | 2020-05-13 17:39 | NUR ---
PATIENT IN BED WATCHING TV. IN ROOM. VITALS AND I&O'S CHARTED. CALL LIGHT IN REACH. NO FURTHER NEEDS AT THIS TIME.
--- NOTE | 2020-05-13 19:33 | NUR ---
BEDSIDE REPORT RECEIVED FROM CABRERA CLARKE. IV INFILTRATED, PAINFUL IN LEFT AC, IV SITE D/C'D WNL. CALL LIGHT WITHIN REACH. NO ADDITIONAL REQUESTS AT THIS TIME.
--- NOTE | 2020-05-13 21:05 | NUR ---
pt AWAKE RESTING IN BED. RATES PAIN 4-5/10 "ALL OVER". PRN PAIN MEDICATION ADMINISTERED. ASSESSMENT COMPLETE. VSS. BOWEL TONES ACTIVE X 4, pt DENIES ABD PAIN. DENIES BM, NO BLOOD VT. TELE IN PLACE, HR REGULAR RHTYHM. ICE WATER, SPRITE PROVIDED. CALL LIGHT IN REACH.
--- NOTE | 2020-05-13 21:42 | NUR ---
IN PATIENT ROOM TO ANSWER CALL LIGHT. CLIFFORD REQUESTED 2 SODAS AND A PUDDING. CABRERA NARAYAN IN ROOM TO MEDICATE. VITALS AND I&O COMPLETED. FRESH WATER PROVIDED. PATIENT IS LAYING IN BED AND IN ROOM. DENIES ANY FUTHER NEEDS.
--- NOTE | 2020-05-13 22:13 | NUR ---
IN pt ROOM FOR ATTEMPT AT NEW IV START, PROCUREMENT SPECIALIST RN NOTIFIED IV SITE NEEDED AT THIS TIME.
--- NOTE | 2020-05-13 22:49 | NUR ---
BARN OPERATOR IBIS IN ROOM TO ATTEMPT TO START IV. IV START NOT SUCCESSFUL WITH THREE TOTAL ATTEMPTS BY RNS, pt REFUSES ADDITIONAL POKES POSTERIOR FOREARMS WHERE VEINS VISIBLE. pt WITH PO FLUIDS IN REACH, STATES "MAYBE IN THE MORNING YOU CAN TRY AGAIN AFTER MY VEINS REST". NO ADDITIONAL REQUESTS.
--- NOTE | 2020-05-14 00:21 | NUR ---
CHECKED ON pt. RESTING IN BED WITH EYES CLOSED. SPO2 92% ON TELE 10, HR 57. LIGHTS OFF IN ROOM.
--- NOTE | 2020-05-14 01:10 | NUR ---
pt UP TO RESTROOM. URINE HAT EMPTIED BY FITO HAMILTON. TELE BATTERY REPLACED. SPO2 92% ON RA, HR 55.
--- NOTE | 2020-05-14 03:28 | NUR ---
CALL LIGHT ANSWERED. PUDDING, HOT APPLE CIDER PROVIDED REQUESTED. pt REQUESTING PRN PAIN MEDICATION FOR ROJAS, WILL WAIT FOR PRN NORCO AVAILABLE. ASSESSMENT COMPLETE. BOWEL TONES ACTIVE, ABD SOFT, NON-TENDER. URINE HAT EMPTIED. SMALL LOOSE STOOL NOTED IN TOILET, BROWN IN COLOR. pt HAS CALL LIGHT IN REACH.
--- NOTE | 2020-05-14 03:42 | NUR ---
PRN PAIN MEDICATION ADMINISTERED FOR ROJAS PAIN 06/07. pt FINISHED ONE PUDDING, SITTING UP IN BED EATING PUDDING, DRINKING PO FLUIDS. NO ADDITIONAL REQUESTS. TRAY TABLE CLEARED OFF.
--- NOTE | 2020-05-14 06:32 | NUR ---
pt SITTING UP AT SIDE OF BED. VSS. CONTINUES TO C/O ROJAS. TEA PROVIDED REQUESTED. URINE HAT EMPTIED. NO ADDITIONAL REQUESTS AT THIS TIME.
--- NOTE | 2020-05-14 06:34 | NUR ---
IN PATIENT ROOM FOR VITALS AND I&O WITH CABRERA NARAYAN. PATIENT PROVIDED WITH A BLACK TEA. IN ROOM. CALL LIGHT IN REACH. NO FUTHER NEEDS AT THIS TIME.
--- NOTE | 2020-05-14 06:35 | NUR ---
PHONE CALL TO , NOTIFIED OF NO IV ACCESS, OKAY TO LEAVE IV OUT PER MD.
--- NOTE | 2020-05-14 07:06 | NUR ---
CALL LIGHT ANSWERED. PULL UPS LARGE PROVIDED. WHITE CHUCKS PLACED IN BED. NO OTHER NEEDS AT THIS TIME. IS IN THE ROOM.
--- NOTE | 2020-05-14 07:41 | NUR ---
Patient in restroom at this time. in chair watching TV. No needs at this time per . Call light within reach.
--- NOTE | 2020-05-14 08:11 | DS ---
[facility] [address], [place] [address] Signed ADMISSION DATE: 05/11/2020 DISCHARGE DATE: 05/14/2020 FINAL DIAGNOSES: 1. Lower gastrointestinal bleed. 2. Sigmoid colon cancer at 35 cm. 3. Moderate internal hemorrhoids. PROCEDURES: Colonoscopy with application of clip and cautery. HISTORY OF PRESENT ILLNESS: Isidro is a 64-year-old gentleman who was in the hospital just a couple of days ago with a GI bleed. He had upper and lower endoscopy. He had multiple small ulcers in the stomach from using his Excedrin. He also had a bleeding tumor in the sigmoid colon. He also had multiple colonic polyps throughout the colon and had to be removed. He had been discharged to home. He came back with ongoing rectal bleeding and feeling weak and dizzy. HOSPITAL COURSE: Isidro was admitted as above and we found that indeed he was anemic with a hemoglobin down to 11.1. It started up over 14.6. We were able to hydrate him and put him through a bowel prep and taken to the endoscopy suite the following morning. We found that the only bleeding spot was a biopsy on the tumor. That was clipped and cauterized and it seems to have done quite well since then. He did require 4 units of packed red blood cells. His hemoglobin now has been stable right around 11.5. He is tolerating diet, has multiple small bowel movements without any significant blood. At this point, we are going to be discharging him to home. In the meantime, his CT scan of the chest, abdomen, pelvis came back and we see no evidence of any metastatic disease. His CEA level came back normal at 1.460. Due to his progress, we are going to be discharging him to home and we are going to be getting him scheduled for his outpatient elective sigmoid resection. DISCHARGE PLANS AND MEDICATIONS: Isidro can resume his chronic medications including his loratadine, losartan, hydrochlorothiazide, and diclofenac gel. He can resume a regular diet. 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 I will be seeing him back in the office here in a week for followup and to schedule his surgery. He knows if he has any ongoing issues with dizziness or rectal bleeding, he will come back to the hospital. There has been no new prescriptions Electronically Signed By: DARCY FINE MD 05/14/20 0811 PATIENT NAME: AGUILA BRITO DISCHARGE SUMMARY DATE OF : 57 REPORT #: [id number] PHYSICIAN: DARCY FINE MD PCP: AFSHAN PACHECO MD REPORT IS CONFIDENTIAL AND NOT TO BE RELEASED WITHOUT AUTHORIZATION [address] [address] Signed written. He and his have expressed understanding and agreed to above plan. MD MIRELA Tolentino/KARONL /[id number] cc: AfshanMD Darcy Escobedo MD Copies: DARCY FINE MD ~ Electronically Signed By: DARCY FINE MD 05/14/20 0811 PATIENT NAME: AGUILA BRITO DISCHARGE SUMMARY DATE OF : 57 REPORT #: [id number] PHYSICIAN: DARCY FINE MD PCP: FASHAN PACHECO MD REPORT IS CONFIDENTIAL AND NOT TO BE RELEASED WITHOUT AUTHORIZATION
--- NOTE | 2020-05-14 08:20 | NUR ---
Notified by Rn, pt would like a visit. Updated I will see when I finish with 829 update meeting with
--- NOTE | 2020-05-14 09:24 | NUR ---
PATIENT AWAKE IN CHAIR, VITALS AND I&OS CHARTED. PATIENT REFUSED SHOWER AND BREAKFAST, ANTICIPATING BEING DISCHARGED. CABRERA CLARKE IN ROOM.
--- NOTE | 2020-05-14 09:30 | NUR ---
To pt room and pt has discharged.
--- NOTE | 2020-05-14 13:29 | NUR ---
CONNECTED WITH PT HE WAS BEING DC'D. GAVE ENCOURAGEMENT, PT ACKNOWLEDGED.
== END 2020-05-14 09:30 | disposition home or self-care (01) | DRG 920 ==
LOC: ED 13:08 → CCU 15:07 → MS 05-12 22:50
PROVIDERS: ADMIT Colon & Rectal Surgery; ATTEND Colon & Rectal Surgery
PROC: 30233N1 Transfusion of Nonautologous Red Blood Cells into Peripheral Vein, Percutaneous Approach (ICD-10-PCS; 2020-05-12)
PROC: 0W3P8ZZ Control Bleeding in Gastrointestinal Tract, Via Natural or Artificial Opening Endoscopic (ICD-10-PCS; principal; 2020-05-12 06:15)
DX: K91.840 Postprocedural hemorrhage of a digestive system organ or structure following a digestive system procedure (principal); C18.7 Malignant neoplasm of sigmoid colon; Z20.822 Contact with and (suspected) exposure to COVID-19; I10 Essential (primary) hypertension; D64.9 Anemia, unspecified; G89.29 Other chronic pain; M25.512 Pain in left shoulder; M25.511 Pain in right shoulder; J30.2 Other seasonal allergic rhinitis; K64.8 Other hemorrhoids; Z86.010 Personal history of colon polyps; Z79.899 Other long term (current) drug therapy; Z79.1 Long term (current) use of non-steroidal anti-inflammatories (NSAID); Z88.5 Allergy status to narcotic agent
CPT/HCPCS: 36415; 71260; 74177; 80048; 80053; 83735; 84100; 85025; 86850; 86900; 86901; 86920; C9113; C9803; J3480; J7030; J7040; J7060; J7121; P9016; Q9967; U0003

== ENCOUNTER 2020-06-03 11:20 | Inpatient (IN) | payer OTHER ==
[~2020-06-03] VITALS: Ht 185.4 cm; Wt 126.8 kg
[~2020-06-03 11:20] MED LIST changes: -COZAAR100 MG PO; +HYZAAR 100-251 EACH PO
--- NOTE | 2020-06-06 16:39 | NUR ---
06/06/20 Esperanza Persaud 1632- PT ARRIVES TO PACU REACTIVE. DOES NOT FOLLOW COMMANDS. RESP 20. OXYGEN SAT HIGH 90'S ON 6L VIA MASK. PT WILL SCRUNCH UP HIS FACE BUT WILL NOT OPEN HIS EYES WHEN BEING TALKED TO.
--- NOTE | 2020-06-06 17:10 | NUR ---
PT ARRIVES TO MED SURG FLOOR FROM PACU. REPORT RECEIVED. VITALS TAKEN, ASSESSMENT COMPLETE. PT RESTING IN BED, AWAKE AND ALERT TO SITUATION. CPOX IN PLACE, SPO2 96% ON 2L O2 NC. MIDLINE INCISION COVERED WITH GAUZE, TAPE, C/D/I. IVF INFUSING. BOWEL TONES ACTIVE. SCDS IN PLACE. AT BEDSIDE, ATTENTIVE TO PT. CALL LIGHT IN REACH
--- NOTE | 2020-06-06 18:17 | NUR ---
POST OP VITALS TAKEN, PT RESTING IN BED, STATES NO NEEDS AT THIS TIME. COOPERATIVE WITH CARE
--- NOTE | 2020-06-06 19:10 | NUR ---
IN TO GET 3 OF 4 POSTOPS WITH DAYSHIFT RN
--- NOTE | 2020-06-06 19:49 | NUR ---
REPORT RECEIVED FROM DAYSHIFT RN, PT LAYING IN BED ALERT AND ORIENTED WITH AT BEDSIDE. IVF INFUSING ORDERED, PT ON 2L O2 NC. PT REPORTS NO FURTHER NEEDS AT THIS TIME, WILL CONTINUE PLAN OF CARE.
--- NOTE | 2020-06-06 20:15 | NUR ---
IN TO GET LAST SET OF POSTOP VITALS, EMPTIED AND RECORDED ELIZONDO AMOUNT, NO FURTHER NEEDS AT THIS TIME
--- NOTE | 2020-06-06 20:41 | NUR ---
PT CALLED, NEEDED NC PLACED BACK ON, O2 93%, RN AWARE
--- NOTE | 2020-06-06 20:50 | NUR ---
THIS RN IN TO ASSESS PT. PT LAYING IN BED AWAKE AND ALERT, IVF INFUSING ORDERED, PT ON 2L O2 NC. PT ASSESSED AT THIS TIME. MIDLINE DRESSING IS C/D/I WITH NO SIGNS OF BLEEDING/DRAINAGE. PT REPORTS NO NEED FOR PAIN MEDICATION AT THIS TIME WHEN ASKED. SCD'S IN PLACE, RADIAL AND PEDAL PULSES STRONG. PT REPORTS NO NEEDS AT THIS TIME WHEN ASKED, WILL CONTINUE PLAN OF CARE. CALL LIGHT IN REACH, BED IN LOWEST POSITION.
--- NOTE | 2020-06-06 22:38 | NUR ---
RESPONDED TO PT CALL LIGHT, PT GIVEN WARM BLANKETS PER HER REQUEST. PT LAYING IN BED AWAKE AND ALERT WATCHING TV, IVF INFUSING, PT ON 2L O2 NC. PT REPORTS NO NEEDS AT THIS TIME AND DENIES THE NEED FOR PAIN MEDICATION. WILL CONTINUE PLAN OF CARE. CALL LIGHT IN REACH, BED IN LOWEST POSITION, WILL CONITNUE PLAN OF CARE.
--- NOTE | 2020-06-07 01:36 | NUR ---
THIS RN IN TO TAKE VITAL SIGNS. PT LAYING IN BED AWAKE AND ALERT WATCHING TV WITH AT BEDSIDE RECLINER. PT REPORTS NO PAIN AND DENIES THE NEED FOR PRN PAIN MEDICATION. VITALS TAKEN, ELIZONDO EMPTIED. MIDLINE DRESSING C/D/I, NO SIGNS OF BLEEDING OR DRAINAGE NOTED. PT DENIES PASSING GAS BUT STATES HE FEELS LESS BLOATED THAN BEFORE. BOWEL TONES PRESENT. NEW COLD PACK PLACED OVER GOWN ON ABDOMEN. PT REPORTS NO FURTHER NEEDS WHEN ASKED, WILL CONTINUE PLAN OF CARE. CALL LIGHT IN REACH, BED IN LOWEST POSITION, IVF INFUSING AT ORDERED RATE.
--- NOTE | 2020-06-07 02:46 | NUR ---
THIS RN RESPONDED TO PT CALL LIGHT. IV PUMP ALARMING, NEW BAG OF ORDERED IVF STARTED. PT LAYING IN BED AWAKE AND ALERT WATCHING TV. PT STATED THAT HE WANTED PRN PAIN MEDICATION FOR 4/10 ABDOMINAL PAIN. PRN NORCO ADMINISTERED AT THIS TIME. MIDLINE DRESSING ASSESSED AND STILL C/D/I. PT REPORTS NO FURTHER NEEDS AT THIS TIME WHEN ASKED, WILL CONTINUE PLAN OF CARE. CALL LIGHT IN REACH, BED IN LOWEST POSITION, IVF INFUSING ORDERED, ELIZONDO DRAINING.
--- NOTE | 2020-06-07 04:57 | NUR ---
PT SLEPT THROUGH MOST OF THE NIGHT. MIDLINE DRESSING REMAINED C/D/I. PT TAKES PO MEDICATION WITH A SMALL AMOUNT OF WATER HE IS NPO. PT ON D5LR AT THIS TIME AND ELIZONDO IS IN PLACE. PT REPORTED 4/10 ABDOMINAL PAIN AT 0240, 1 TAB OF PRN NORCO WAS ADMINISTERED. PT ON CPOX AND HAS BEEN ON 2L O2 NC TO MAINTAIN SPO2 ABOVE 90%. ICE PACK IN PLACE WELL OVER ABDOMINAL SITE AND SCD'S IN PLACE.
--- NOTE | 2020-06-07 05:15 | NUR ---
IN TO GET VITALS, ELIZONDO EMPTIED, NO FURTHER NEEDS
--- NOTE | 2020-06-07 05:19 | NUR ---
THIS RN IN TO ASSESS PT AND TAKE VITALS. PT LAYING IN BED AWAKE AND ALERT. IVF INFUSING ORDERED, VITALS TAKEN WITH THE HELP OF FITO ELMORE. PT REPORTS NO PAIN AT THIS TIME AND DENIES THE NEED FOR PAIN MEDICATION. PT ASSESSED, ABDOMINAL DRESSING IS C/D/I AND SHOWS NO SIGNS OF BLEEDING OR DRAINAGE, BOWEL TONES ACTIVE, COLD PACK IN PLACE. RADIAL AND PEDAL PULSES PRESENT AND STRONG. PT REPORTS NO FURTHER NEEDS WHEN ASKED, WILL CONTINUE PLAN OF CARE. CALL LIGHT IN REACH, BED IN LOWEST POSITION, IVF INFUSING ORDERED. PT NO LONGER ON 2L O2 NC AND SPO2 IS REMAINING AT 91-93% ON CPOX.
--- NOTE | 2020-06-07 06:21 | OR ---
[facility] [address] [place], [place] [address] Signed DATE OF OPERATION: 06/06/2020 SURGEON: Darcy Fine MD PREOPERATIVE DIAGNOSES: 1. 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 2. Diverticulosis. POSTOPERATIVE DIAGNOSES: 1. 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 2. Diverticulosis. PROCEDURES: Sigmoidectomy with end-to-end colorectal anastomosis, hand-sewn in two layers. ESTIMATED BLOOD LOSS: URINE OUTPUT: 400 mL over two and half hours. INDICATIONS: Isidro is a 64-year-old gentleman, who came to us about 4 weeks ago with a GI bleed. I was asked to see him for the upper endoscopy. He did have shallow ulcers in the stomach from his Excedrin. However, he also had multiple colonic polyps and a nearly circumferential colon cancer at 35 cm. Unfortunate blood after the biopsy, he came back two days later, we had to cauterize and clipped that tumor and then provide him with 4 units of packed red blood cells. He recovered nicely from that. In the meantime, the CEA level came back at 1.46, which is normal. He also had a CT scan of the chest and pelvis, which all came back without metastatic disease. I have met with Isidro and his in the office. I gave him a brochure on colorectal polyps and cancer. We went through that in great detail. I circled the sections relevant to him. He understands this require surgery to remove. He understands the nature of the surgery along with the expected intraop and postop course. There is risk to surgery including, but not limited to bleeding, infection, scarring, change in contour the skin, damage to bowel, damage to the ureter, anastomotic leak, incisional hernias, and other unforeseen comorbidities. He had expressed understanding and wished to proceed. DESCRIPTION OF PROCEDURE: I met with Isidro and his once again, in our preop area. After this, he was taken Electronically Signed By: DARCY FINE MD 06/07/20 0621 PATIENT NAME: AGUILA BRITO OPERATIVE REPORT DATE OF : 57 REPORT #: [id number] PHYSICIAN: DARCY FINE MD PCP: AFSHAN PACHECO MD REPORT IS CONFIDENTIAL AND NOT TO BE RELEASED WITHOUT AUTHORIZATION [address] [address] Signed into the operating room and placed in the supine position under general endotracheal tube anesthesia. He was given preoperative antibiotics along with subcutaneous heparin. SCDs were utilized. A Oneal catheter had been inserted without difficulty with return of clear yellow urine. He was provided with bilateral TAP block by our nurse licensed midwife. After this, he was prepped and draped in the usual sterile fashion. A standard periumbilical incision was made and carried down bluntly and with the cautery. We had tattooed that tumor and was very easy to find and quite evident on palpation. Fortunately, he has a very long mesentery of the colon and rectum. We were able to follow the colon down the top of the rectum. We divided that with the linear stapler. We went about 10 cm or so proximal of the tumor and divided the colon in that area. I freed up the colon along the white line of [employer] to the spleen; that allowed the colon to come down quite nicely for an end-to-end anastomosis. We divided the mesocolon between Pean clamps and 0 Vicryl ties. We then brought the colon to the top of the rectum end-to-end, and we made our anastomosis in two layers with Vicryl and silk sutures. This gave a widely palpably patent anastomosis. We then closed the mesenteric rent on both sides with a running 0-Vicryl suture. The area of the abdomen was irrigated and suctioned out until clear. The bowel was returned to its position. We closed the midline with interrupted [id number] #1 PDS sutures. Local anesthetic was injected in the abdominal wall from the umbilicus all the way cephalad the top of his incision. The wound was irrigated and suctioned out until clear. We reapproximated the dermis with interrupted 3-0 subcuticular Monocryl sutures. Mary Ellen were then used to reapproximate the skin. Dry gauze and tape were then applied. His Oneal catheter was left in place. Isidro was awakened from his anesthesia, extubated in the OR, and taken to recovery room in stable condition. Darcy Fine MD ALB/MODL /[id number] cc: MD Afshan Tolentino MD Copies: DARCY FINE MD Electronically Signed By: DARCY FINE MD 06/07/20 0621 PATIENT NAME: AGUILA BRITO OPERATIVE REPORT DATE OF : 57 REPORT #: [id number] PHYSICIAN: DARCY FINE MD PCP: AFSHAN PACHECO MD REPORT IS CONFIDENTIAL AND NOT TO BE RELEASED WITHOUT AUTHORIZATION [address] [place], [place] [address] Signed ~ Electronically Signed By: DARCY FINE MD 06/07/20 0621 PATIENT NAME: AGUILA BRITO OPERATIVE REPORT DATE OF : 57 REPORT #: [id number] PHYSICIAN: DARCY FINE MD PCP: AFSHAN PACHECO MD REPORT IS CONFIDENTIAL AND NOT TO BE RELEASED WITHOUT AUTHORIZATION
--- NOTE | 2020-06-07 06:55 | NUR ---
BEDSIDE HANDOFF REPORT RECEIVED FROM BOTANY TEACHER RN. PT RESTING IN BED. PT PROVIDED 200ML OF ICE WATER PER FLUID RESTRICTION. PT DENIES OTHER NEEDS AT THIS TIME.
--- NOTE | 2020-06-07 08:00 | NUR ---
PT RESTIN IN BED. PT RATING PAIN TOLERABLE 3-4/10, DECLINING PAIN MAEDICATION AT THIS TIME. PT ON ROOM AIR, LUNG SOUNDS CLEAR, DENIES SOB. PT DENIES NAUSEA, BOWEL TONES ACTIVE. ABD INCISION OPEN TO AIR, AARON IN PLACE. CMS INTACT, WITHOUT EDEMA. ELIZONDO CATH DISCONTINUED PER ORDER. PT ASSISTED TO CHAIR, 1PA. PT PROVIDED WITH FRESH ICE PACK. PT DENIES OTHER NEEDS AT THIS TIME.
--- NOTE | 2020-06-07 08:55 | NUR ---
PT REQUESTIN GPAIN MEDICATION, GIVEN 1 TAB NORCO. PT ASSISTED BACK TO BED. PT DENIES OTHER NEEDS AT THIS TIME.
--- NOTE | 2020-06-07 19:25 | NUR ---
RECEIVED REPORT FROM CABRERA ESCAMILLA. pt RESTING IN THE CHAIR. NO REQUESTS AT THIS TIME. CALL LIGHT WITHIN REACH. AT BEDSIDE. WHITEBOARD UPDATED.
--- NOTE | 2020-06-07 20:19 | NUR ---
patient called to use restroom. sba to bathroom. back to bed. pulse ox sticker placed on L hand. provided with blanket. rn notified that he wanted to wear nasal canula while sleeping. denies any futher needs at this time. call light in reach.
--- NOTE | 2020-06-07 20:44 | NUR ---
Patient called to ask what SBA stood for. RN in room to complete vitals and i&o. patient refused to wear SCD. call light in reach. patient and guest deny any futher needs.
--- NOTE | 2020-06-07 20:49 | NUR ---
IN TO DO ASSESSMENT. pt RESTING IN BED WATCHING TV. REPORTED 4/10 PAIN. DISCUSSED PAIN MANAGEMENT. ASSESSMENT DONE. BOWEL TONES ACTIVE. MIDLINE INCISION OPEN TO AIR. SCANT DRY DRAINAGE NOTED. NO FURTHER REQUESTS AT THIS TIME. CALL LIGHT WITHIN REACH.
--- NOTE | 2020-06-07 21:35 | NUR ---
Pt utilizes call light, requests to use the bathroom. Pt to the bathroom and back to bed with sba, tolerated well. Denies further needs at this time. Call light left at pt's side. present at pt's bedside.
--- NOTE | 2020-06-07 23:19 | NUR ---
CALL LIGHT ON. NEW BAG OF FLUIDS HUNG. pt REPORTED 4/10 PAIN REQUESTED 2 PAIN PILLS, GIVEN (SEE MAR). NO FURTHER REQUESTS AT THIS TIME. CALL LIGHT WITHIN REACH.
--- NOTE | 2020-06-08 00:48 | NUR ---
CALL LIGHT ON. pt UP TO VOID, SBA. REPORTED THE PAIN "WASN'T BAD THIS TIME" pt RESTING IN BED. CALL LIGHT WITHIN REACH.
--- NOTE | 2020-06-08 03:30 | NUR ---
CALL LIGHT ON. DOUBLE CUTTER IN TO ASSIST pt's TO GO HOME. NO REQUESTS AT THIS TIME. CALL LIGHT WITHIN REACH.
--- NOTE | 2020-06-08 05:41 | NUR ---
CALL LIGHT ON. pt UP TO VOID, SBA. BACK TO BED. REPORTED 5/10 PAIN, PRN GIVEN (SEE MAR). ASSESSMENT DONE. NO CHANGES. CALL LIGHT WITHIN REACH.
--- NOTE | 2020-06-08 07:26 | NUR ---
patient was resting in bed when this garde manger entered room. sba to bathroom. back to chair. patient says "that I am still trying to wake up so I can't think of anything else I need now". SCDs removed. call light in reach.
--- NOTE | 2020-06-08 07:42 | NUR ---
REPORT RECEIVED FROM CIVIL RIGHTS INVESTIGATOR RNYI. PT AWAKE AND UP IN CHAIR THIS MORNING. AMBULATED TO BATHROOM TO VOID, SBA. PT REMAINS ON CLEAR LIQUID DIET AND IS TOLERATING WELL. PT IS ALSO ON 1000 ML FLUID RESTRICTION. ABD PAIN 4/10 AT REST, RECEIVED 2 TABS OF NORCO @ 0530. NO OTHER NEEDS AT THIS TIME. CALL LIGHT IN REACH.
--- NOTE | 2020-06-08 09:30 | NUR ---
IN TO GIVE SCHEDULED MORNING MEDICATIONS. PT BACK IN BED. 1 L O2 ON PT DESATS WHEN ASLEEP. REQUESTING PAIN MEDICATION FOR 5/10 ABD PAIN, STATES 5/10 IS HIS LIMIT FOR TOLERABLE PAIN. NORCO GIVEN. PT REQUESTING TO USE BATHROOM TO VOID, UNMEASURED. AMBULATORY IN ROOM, NOW SITTING IN CHAIR. GIVEN WARM BLANKET. LUNG SOUNDS CLEAR. BOWEL TONES HYPOACTIVE AND PT STATES HE'S PASSED SMALL AMOUNTS OF GAS. NO CHANGES TO MIDLINE INCISION, GAUZE TO DISTAL PORTION OF INCISION FOR EXTRA DRAINAGE IS DRY. BLE ELEVATED AND PT PROVIDED WARM BLANKET. CALL LIGHT IN REACH. NO OTHER NEEDS AT THIS TIME.
--- NOTE | 2020-06-08 11:00 | NUR ---
PT RESTARTED ON LOSARTAN PER DR. FINE. VSS. [place]AN GIVEN. PT BACK UP TO BATHROOM AND TO CHAIR. AMBULATING WELL IN ROOM. ALSO HAS AMBULATED 2 LARGE LOOPS AROUND BOTH NURSE STATIONS. REPORTS PAIN IS WELL CONTROLLED AT THIS TIME. CALL LIGHT IN REACH.
--- NOTE | 2020-06-08 14:30 | NUR ---
PT REQUESTING PAIN MEDICATION FOR 5/10 ABD PAIN. 2 TAB PRN NORCO GIVEN. PT SITTING UP IN CHAIR. NOW VISITING. TOLERATING CLEAR LIQUIDS VERY WELL. DRINKING BROTH RIGHT NOW. NO CHANGED TO MIDLINE INCISION SITE, AND NO NEW DRAINAGE. PT BOWEL TONES ARE SLIGHTLY MORE ACTIVE, THOUGH HE DENIES BEING ABLE TO PASS GAS TODAY. CALL LIGHT IN REACH, NO OTHER NEEDS.
--- NOTE | 2020-06-08 16:15 | NUR ---
PT UP TO SHOWER. PT SALINE LOCKED AND BUE IV'S COVERED. SHOWER SET UP, PT INSTRUCT CALL IF ASSISTANCE NEEDED. SHOWER CHAIR ON STAND-BY.
--- NOTE | 2020-06-08 19:25 | NUR ---
BEDSIDE REPORT RECEIVED FROM OFFGOING RN. PT RESTING IN BED WITH AT BEDSIDE. NEEDS DENIED AT THIS TIME. CALL LIGHT IN REACH.
--- NOTE | 2020-06-08 21:16 | NUR ---
ANSWERED BATHROOM LIGHT. SBA. PATIENT IS UP IN THE CHAIR. SIDE TABLE AND CALL LIGHT WITHIN REACH. NO OTHER NEEDS AT THIS TIME. IS IN THE ROOM LAYING ON THE COUCH.
--- NOTE | 2020-06-08 21:27 | NUR ---
PT ASSESSMENT COMPLETE. PT RATES PAIN 6/10 TO ABD. STATES THIS IS TOLERABLE AT THIS TIME. DENIES SOB OR NAUSEA. MIDLINE INCISION WITH AARON PRESENT. RANDEE. NO DRAINAGE NOTED AT THIS TIME. BT'S HYPOACTIVE. PT DENIES ABD TENDERNESS. HUMID SYSTEM OPERATOR ATTEMPTS TO FLUSH R HAND IV, IV NOTED TO BE INFILTRATED. IV DCD AT THIS TIME. PT DENIES FURTHER NEEDS. PRESENT AT BEDSIDE. CALL LIGHT IN REACH. WHITE BOARD UPDATED.
--- NOTE | 2020-06-08 23:28 | NUR ---
PT UTLIZES CALL LIGHT. REQUESTS PRN PAIN MEDICATION, ADMINISTERED. SEE EMAR. PT UP TO BATHROOM AND BACK TO BED WITH SBA. TOLERATED WELL. DENIES FURTHER NEEDS AT THIS TIME. PROVIDED WITH ICE WATER. CALL LIGHT IN REACH.
--- NOTE | 2020-06-09 01:50 | NUR ---
PT CALLED, SBA TO BED, COVERED PER CHOICE. ALL PERSONAL ITEMS WITHIN REACH PER HIS REQUEST.
--- NOTE | 2020-06-09 02:08 | NUR ---
PT ASSESSMENT COMPLETE. PT UTLIZES CALL LIGHT, REQUESTS TO USE THE BATHROOM. PT UP TO BATHROOM AND BACK TO BED WITH SBA. PT RATES PAIN 4-5/10, STATES THIS IS IMPROVED AND TOLERABLE. MIDLINE INCISION RANDEE, NO DRAINAGE NOTED. BT'S HAVE BECOME MORE ACTIVE THAN HYPOACTIVE. PT DENIES FLATUS OR BM AT THIS TIME. PT DENIES ABD TENDERNESS TO TOUCH. IVF INFUSING. PT DENIES FURTHER NEEDS. CALL LIGHT IN REACH. SLEEPING ON CHAIR.
--- NOTE | 2020-06-09 04:19 | NUR ---
PT UTLIZES CALL LIGHT, REQUESTS TO USE THE BATHROOM. PT UP TO BATHROOM AND BACK TO BED WITH SBA. TOLERATED WELL. PT REPORTS PAIN 5/10 TO ABD, REQUESTS PRN PAIN MEDICATION. ADMINISTERED, SEE EMAR. PT ASKS HOW ERP ENGINEER THINKS HE IS PROGESSING. POST OP EDUCATION PROVIDED. PT STATES UNDERSTANDING. DENIES FURTHER QUESTIONS AT THIS TIME. PT REQUESTS VITALS BE TAKEN NOW. VS WNL. PT DENIES FURTHER NEEDS. CALL LIGHT IN REACH. AT BEDSIDE.
--- NOTE | 2020-06-09 07:30 | NUR ---
REPORT RECEIVED FROM BRICE HAND SIZER RN. PT UP IN CHAIR THIS MORNING. STATES ABD PAIN IS 4/10 AND WOULD LIKE PAIN MEDICATION WITH HIS MORNING MED PASS. SLEEPING ON COUCH. CALL LIGHT IN REACH.
--- NOTE | 2020-06-09 08:50 | NUR ---
IN TO GIVE MORNING MEDICATIONS. PT REQUESTING PAIN MEDICATION, 2 TAB NORCO. AMBULATORY IN ROOM THIS MORNING, REFUSING TO WALK WILLIAM AT THIS TIME. STATES HE WILL WALK WILLIAM WHEN HE'S "MORE AWAKE". UP IN CHAIR. CALL LIGHT IN REACH. IN ROOM.
--- NOTE | 2020-06-09 10:00 | NUR ---
STAFF IN WORKING WITH PATIENT. WILL CHECK BACK.
--- NOTE | 2020-06-09 10:00 | NUR ---
ABULATED PT OUT IN HALLS FOR 1 LAP. TOLERATED WELL. BACK TO CHAIR. CALL LIGHT IN REACH.
--- NOTE | 2020-06-09 10:37 | NUR ---
Rounded with patient, he states that he is 99% happy with his care. In follow-up with his primary RN he has stated that he feels constipated, however mirax is not being prescribed at this time secondary to his surgery per nurse conversation with MD. Patient desires to return home, I discussed with him measures that can be taken at home for a successful discharge, such as adherance to his medication regimen, keeping his follow-up appts., and following the discharge instructions that he will get at discharge. Patient verbalizes an understanding of these things.
--- NOTE | 2020-06-09 11:00 | NUR ---
ENCOURAGING PT AMBULATION IN WILLIAM. PT REFUSING. EDUCATED PT ON IMPORTANCE OF AMBULATION TO PROMOTE BOWEL ACTIVITY AND HELP W/ GAS PAIN, ALSO EDUCATED THAT FREQUENT AMBULATION CAN PREVENT PNEUMONIA AND FORMATION OF BLOOD CLOTS. PT UNINTERESTED AT THIS TIME. STATES "I JUST WANT TO BE LEFT ALONE, I'LL LET YOU KNOW WHEN I'M READY TO WALK". PT IN CHAIR. CALL LIGHT IN REACH.
[2020-06-09] MEDS ORDERED: LOSARTAN-HCTZ1 EAC1 PO (11:55)
--- NOTE | 2020-06-09 11:56 | NUR ---
MED REC COMPLETE
--- NOTE | 2020-06-09 12:57 | NUR ---
MED REC COMPLETE
--- NOTE | 2020-06-09 13:05 | NUR ---
PATIENT UP IN HALLS AMBULATING WITH STAFF. WILL CHECK BACK.
--- NOTE | 2020-06-09 13:12 | NUR ---
PT AMBULATORY IN WILLIAM, AMBULATED 1.5 LARGE LOOPS AROUND NURSE STATIONS. PT TO BATHROOM TO VOID 75 MLS CONCENTRATED URINE. URINE OUTPUT 225 MLS X1 UNMEASURED VOID FOR THE LAST 4 HOURS (QUANTITY SUFFICIENT). 400 MLS OF PO FLUID INTAKE. VSS. SATING 94% ON ROOM AIR. LUNG SOUNDS CLEAR. PT DENIES SOB W/ EXERTION. STATES "I JUST FEEL WEAK AND WORN OUT". DENIES NAUSEA OR DIZZINESS. GIVEN 2 TAB NORCO FOR 6/10 ABD PAIN PER REQUEST. PT UP IN CHAIR. IV PUMP CLEAR OF 883 MLS IVF. CALL LIGHT IN REACH. BACK IN ROOM. DENIES BEING ABLE TO PASS ANY GAS TODAY, THOUGH STATES HE CAN FEEL THINGS "MOVING DOWN THERE". HARD CANDIES AT BEDSIDE. WILL CONTINUE TO ENCOURAGE AMBULATION.
--- NOTE | 2020-06-09 14:11 | NUR ---
SPOKE WITH PATIENT AND IN ROOM. PT UP IN CHAIR. PATIENT STATES "NOTHING HAS CHANGED SINCE LAST TIME I WAS HERE". PT DRIVES. HAS PCP. LIVES WITH "MY GIRLFRIEND". PATIENT VERY SHORT WITH ME AT THIS POINT ON ANSWERING QUESTIONS. PATIENT PLANS TO DISCHARGE HOME. HE DENIES FINANCIAL PROBLEMS TO AFFORD MEDS/FOOD/UTILITIES. PATIENT HAS INSURANCE NOW. DENIES NEEDING ANY DME. TRIED TO DISCUSS MORE BUT PATIENT AGAIN CUTS ME OFF WITH ANY ATTEMPTS FOR FURTHER EDUCATION OR QUESTIONS. CM WILL FOLLOW NEEDED.
--- NOTE | 2020-06-09 15:00 | NUR ---
PT REFUSING TO AMBULATE WILLIAM AT THIS TIME. STATES HE DOESN'T FEEL STRONG ENOUGH. ENCOURAGED TO DO SHORT DISTANCE AND HE STATES "I JUST DON'T FEEL LIKE IT RIGHT NOW". ENCOURAGED TO USE INCENTIVE SPIROMETER MORE FREQUENTLY AND PRACTICE DEEP BREATHING TO PREVENT PNEUMONIA. PT DENIES NEED. UP IN CHAIR. CALL LIGHT IN REACH.
--- NOTE | 2020-06-09 16:30 | NUR ---
PT MEDICATED W/ 1 TAB OF 10 MG NORCO FOR 5/10 ABD PAIN. PT EDUCATED ON DECREASING NORCO FROM 2 TAB TO 1 TAB Q4H NEEDED 20 MG OF NORCO IS A HIGH DOSE AND COULD BE WHY PT FEELS WEAKER TODAY. PT VERABLIZED UNDERSTANDING. EDUCATED THAT INCREASED DOSES OF NARCOTICS CAN ALSO CAUSE RESPIRATORY DEPRESSION SO PT NEEDS TO BE UP WALKING. PT AGREES. UP TO AMBULATE WILLIAM 1 LARGE LAP. BACK TO CHAIR. CALL LIGHT IN REACH.
--- NOTE | 2020-06-09 18:01 | NUR ---
PATIENT STATES HE IS IN PAIN. RN NOTIFIED. TOOK PATIENTS VITALS AND DOCUMENTED I&O'S. PATIENT STATED HE DID NOT WANT ANYTHING FOR DINNER PATIENT WILL NOTIFY IF HE CHANGES HIS MIND. NO OTHER CONCERNS EXPRESSED.
--- NOTE | 2020-06-09 19:00 | NUR ---
ASKED DR FINE ABOUT ADDING SOME NON-NARCOTIC PAIN MEDICATIONS FOR PT. NO NEW ORDERS AT THIS TIME. SAYS HE WILL ADDRESS PAIN MANAGEMENT AND MEDICATIONS IN THE MORNING.
--- NOTE | 2020-06-09 19:25 | NUR ---
BEDSIDE REPORT RECEIVED FROM OFFGOING RNLENIN. PT RESTING IN RECLINER. STATES THAT HE WOULD LIKE TO SLEEP THERE FOR THE NIGHT, THAT IT IS "EASIER TO GET OUT OF THAN THE BED." NEEDS DENIED AT THIS TIME. CALL LIGHT IN REACH.
--- NOTE | 2020-06-09 21:00 | NUR ---
PT ASSESSMENT COMPLETE. PT RESTING IN RECLINER WATCHING TV. PT'S AT BEDSIDE. PT REPORTS PAIN 4/10. STATES PAIN IS TOLERABLE AT THIS TIME. PT DENIES NAUSEA OR SOB. BT'S ACTIVE. PT DENIES ABD TENDERNESS UPON PALPATION. PT DENIES FLATUS OR BM THIS SHIFT. IV FLUSHED, WNL. URINE PRESENT IN COMMODE IN BATHROOM. DARK IN COLOR. PT CONTINUES TO VOID SMALL AMOUNTS, 50-75 AT A TIME. PT REQUESTS THE REST OF WATER FOR THE EVENING, PROVIDED. ICE PACK PROVIDED FOR ABD. FURTHER NEEDS DENIED. CALL LIGHT IN REACH.
--- NOTE | 2020-06-09 22:23 | NUR ---
PT UTLIZES CALL LIGHT, REQUESTS PRN PAIN MEDCIATION. PRN ADMINISTERED, SEE EMAR. TEMP RECHECKED, 98.4. PT DENIES NEEDS AT THIS TIME. CALL LIGHT IN REACH. ON COUCH AT BEDSIDE.
--- NOTE | 2020-06-10 01:34 | NUR ---
PT UTILIZES CALL LIGHT, WOULD LIKE TO WALK. PT WALKED X 1 IN THE HALLWAY. PT WALKS SLOWLY, HOLDING ON TO HAND RAIL. SITTING UP IN RECLINER WHEN FINISHED. DENIES FURTHER NEEDS. RESTING ON COUCH. CALL LIGHT IN REACH.
--- NOTE | 2020-06-10 03:06 | NUR ---
PT ASSESSMENT COMPLETE. PT UTILIZES CALL LIGHT, REQUESTS PRN PAIN MEDCIATION. RATES PAIN 5/10 TO ABD. PAIN MED PROVIDED, SEE EMAR. PT DENIES NAUSEA, OR SOB. LUNG SOUNDS CLEAR. PT STATES THAT HE HAS BEEN DOING DEEP BREATHING AND COUGHING EDUCATED ABOUT EARLIER. PT REPORTS PASSING FLATUS X2. STATES ABD FEELS "ABOUT THE SAME" AFTER PASSING GAS. BT'S ACTIVE. ABD NON TENDER TO PALPATION. PT DENIES FURTHER NEEDS AT THIS TIME. CALL LIGHT IN REACH.
--- NOTE | 2020-06-10 06:16 | NUR ---
DR. FINE IN TO SEE PT. POC DISCUSSED. PT AND HIS DENY QUESTIONS.
--- NOTE | 2020-06-10 07:42 | NUR ---
Patient resting in chair, alert and oriented x3. Patient reports mild abdominal pain. at bedside. Patient has no needs at this time. Call light within reach.
--- NOTE | 2020-06-10 09:30 | NUR ---
Update from Lázaro REES, CM. No change in plan for dc.
--- NOTE | 2020-06-10 10:30 | NUR ---
[place] 10-325mg po admin for reports of 6/10 abd pain.
--- NOTE | 2020-06-10 10:32 | NUR ---
Patient ambulated in hallways with MUNICIPAL SERVICES MANAGER standby assist; tolerated well.
--- NOTE | 2020-06-10 14:19 | NUR ---
PT ALERT, ORIENTED AND SUPPORTED BY HIS IN RM. PT IS SITTING IN CHAIR, IS WAITING FOR SPECIAL EDUCATION ITINERANT TEACHER TO COME AND ASSIST WITH SHOWER. GAVE ENCOURAGEMENT, PT FEELS HE IS INFORMED. HAS NO OTHER NEEDS AT THIS TIME. GAVE BLESSING. WILL FOLLOW NEEDED
--- NOTE | 2020-06-10 15:12 | NUR ---
Patient showered, tolerated well. Patient reports his pain is tolerable at this time, 4/10 reported pain level. Fresh water within reach of patient. Patient has no needs. Personal supplies and call light within reach. remains at bedside. No needs at this time.
--- NOTE | 2020-06-10 17:56 | NUR ---
Patient sitting up in chair resting. Patient reports mild abdominal pain. Patient declined pain medication at this time.
--- NOTE | 2020-06-10 18:17 | NUR ---
[place] 10/325mg po admin for reports of 6/10 abd pain.
--- NOTE | 2020-06-10 19:58 | NUR ---
RECEIVED REPORT FROM DAY SHIFT RN. PATIENT IS RESTING IN RECLINER WITH EYES CLOSED, RR 18. CALL LIGHT IN REACH.
--- NOTE | 2020-06-10 21:00 | NUR ---
PATIENT ASSESMENT COMPLETED. VITALS TAKEN AND RECORDED. INTAKE AND OUPUT RECORDED. PATIENTS MIDLINE SURGICAL SITE HAS AARON PRESENT, OPEN TO AIR, AND APPEARS WELL APPROXIMATED. PATIENT HAS IV INFUSING PER ORDER. PATIENT RATES PAIN AT A 5/10 AND IS REQUESTING "NORCO" WHEN AVAILABLE. NO FURTHER NEEDS NOTED. CALL LIGHT IN REACH.
--- NOTE | 2020-06-10 21:42 | NUR ---
BUDDHIST MONK REPORTED BLOOD IN PATIENTS STOOL. PATIENT HAS A SMALL AMOUNT OF BLOOD IS HIS STOOL. PATIENT DENIES ANY INCREASE IN PAIN OR NAUSEA. PATIENT DENIES BEING LIGHT HEADED OR DIZZY. PATIENT IS RESTING IN RECLINER. PATIENT DENIES ANY FURTHER NEEDS. CALL LIGHT IN REACH.
--- NOTE | 2020-06-10 22:00 | NUR ---
MEDIUM LIQUID BLOODY STOOL.
--- NOTE | 2020-06-10 23:07 | NUR ---
PT REQUESTED SOMETHING FOR PAIN. 09/06 ABD PAIN. SITTING UP IN CHAIR, WATCHING TV, FACE STRAINED LOOKING HE SLOWLY ROCKS IN CHAIR. "YOU KNOW THESE ARE EVERY 4 HOURS NOT 6" HE STATED. EDUCATED ON MEDICATION BEING A PRN, GENERALLY PT WILL REQUEST PAIN MEDS NEEDED, BUT TOLD HIM WILL LET HIS PRIMARY RN KNOW. PT DID SAY HE HAS WALKED TODAY, HAVING BM'S BUT JUST DOESNT' HAVE AN APPETITE. NOT PRESENT IN ROOM SHE HAS BEEN FOR THE PREVIOUS NIGHTS. HE STATED SHE WENT HOME. DENIES OTHER NEEDS AT THIS TIME.
--- NOTE | 2020-06-11 00:26 | NUR ---
PATIENT IS RSTING IN RECLINER WITH EYES CLOSED, RR 18. CALL LIGHT IN REACH.
--- NOTE | 2020-06-11 03:17 | NUR ---
PATIENT GIVEN PRN PAIN MEDICATION PER ORDER FOR 5/10 ABD PAIN. PATIENT DENIES ANY FURTHER NEEDS. CALL LIGHT IN REACH.
--- NOTE | 2020-06-11 05:22 | NUR ---
PATIENT IS RESTING IN RECLINER WITH EYES CLOSED, RR 17. CALL LIGHT IN REACH.
--- NOTE | 2020-06-11 05:43 | NUR ---
PATIENT IS ON CLEARS AT THIS TIME, TOLERATING IT WELL, AND NO NAUSEA NOTE. PATIENT IS ON RA. PATIENT IS A SBA. PATIENT HAD X1 BM. PATIENT HAS MIDLINE ABD INCISION, AARON PRESENT, OPEN TO AIR, AND APPEARS WELL APPROXIMATED. PATIENT RECEIVES PRN PAIN MEDICATION PER ORDER. PATIENT IS AAOX4. NO NEEDS NOTED. CALL LIGHT IN REACH.
--- NOTE | 2020-06-11 05:45 | NUR ---
Patient took self to BR, changed brief, back to chair. Pt C/O pain, 06/07. RN notified. VS done, patient does not need anything at this time.
--- NOTE | 2020-06-11 06:55 | NUR ---
PATIENT GIVEN PRN PAIN MEDICATION FOR 5/10 PAIN MEDICATION IN HIS LOWER ABD. PATIENT ASSISTED WITH OPTIONS FOR BREAKFAST. NO FURTHER NEEDS NOTED. CALL LIGHT IN REACH.
--- NOTE | 2020-06-11 07:22 | NUR ---
Patient resting in bed, eyes closed, respirations even and non labored. Patient has no distress noted. Personal supplies and call light within reach.
--- NOTE | 2020-06-11 10:19 | NUR ---
PATIEWNT UP AND AMBULTATED WILLIAM WITH THIS BRAILLE DUPLICATING MACHINE OPERATOR. URINE AND LIQUID STOOL IN BSC. RN AWARE. CALL LIGHT IN REACH.
--- NOTE | 2020-06-11 10:31 | NUR ---
No change in dc plan at this time.
--- NOTE | 2020-06-11 11:59 | NUR ---
Patient sitting up in chair with lunch in front of him. Patient walked recently per his report. Patient declined pain medication at this time. Pain reported to be tolerable at this time. Pt reports passing flatus, abdomen feels soft/non tender. Call light within reach. Patient and decline needs at this time.
--- NOTE | 2020-06-11 13:37 | NUR ---
PATIENT AWAKE IN CHAIR. IN ROOM. VITALS AND I&OS CHARFTED. FRESH ICE WATER PROVIDED, PERSONAL ITEMS AND CALL LIGHT IN REACH
--- NOTE | 2020-06-11 14:50 | NUR ---
SITTING UP IN CHAIR, ALERT AND ORIENTED. PT DIDN'T GET MUCH SLEEP, GROUCHY USUAL. ON COUCH, HAD GOOD VISIT. GAVE BLESSING, WILL FOLLOW
--- NOTE | 2020-06-11 15:39 | NUR ---
Patient sitting up in chair resting, respirations even and non labored. Patient denies needs. remains at bedisde visiting. Personal supplies and call light within reach.
--- NOTE | 2020-06-11 17:43 | NUR ---
PATIENTS O2 89 GOT IT UP TO 90. VITALS TAKEN AND RECORDED. NOTHING ELSE NEEDED OF NOW.
--- NOTE | 2020-06-11 19:28 | NUR ---
RECEIVED REPORT FROM DAY SHIFT RN. PATIENT IS RESTING IN RECLINER. NO NEEDS NOTED. CALL LIGHT IN REACH.
--- NOTE | 2020-06-11 19:45 | NUR ---
EMPTIED BEDSIDE COMMODE. PICKED UP USED BLANKET. ICE WATER REFILLED. SODA PROVIDED PER PATIENT'S REQUEST. V/S AND I&O'S TAKEN AND CHARTED. PATIENT IS STAYING UP IN THE CHAIR.
--- NOTE | 2020-06-11 20:03 | NUR ---
PATIENTS VITALS TAKEN AND RECORDED. INTAKE AND OUPUT RECORDED. PATIENT ASSESMENT COMPLETED. PATIENTS MID ABD INCISION IS C/D/I, WELL APPROXIMATED, AND AARON ARE PRESENT. PATIENT RATES PAIN AT A 5/10. PATIENT GIVEN PRN PAIN MEDICATION PER ORDER. PATIENT DENIES ANY NAUSEA. NO FURTHER NEEDS NOTED. CALL LIGHT IN REACH.
--- NOTE | 2020-06-11 20:20 | NUR ---
WINDING RACK OPERATOR NOTIFIED ME THAT PATIENT WAS HAD NAUSEA. DISCUSSED NAUSEA WITH PATIENT. PATIENT STATED " I COUGHED SO HARD MY STOMACH GOT UPSET". PATIENT DENIES NAUSEA AT THIS TIME. PATIENT DENIES THE NEED FOR NAUSEA MEDICATION. NO FURTHER NEEDS NOTED. CALL LIGHT IN REACH.
--- NOTE | 2020-06-11 21:35 | NUR ---
PATIENT CALLED TO HAVE URINE EMPTIED. PATIENT IS RESTING IN RECLINER. IV INFUSING PER ORDER. PATIENT RATES PAIN AT A 3/10 AND DENIES THE NEED FOR ANY PAIN MEDICATION AT THIS TIME. PATIENT DENIES ANY NAUSEA. NO FURTHER NEEDS NOTED. CALL LIGHT IN REACH.
--- NOTE | 2020-06-11 22:59 | NUR ---
PATIENT CALLED TO REPORT EMESIS. PATIENT HAD 10ML OF EMESIS. PATIENT REPORTS NAUSEA. PATIENT GIVEN PRN NAUSEA MEDICATION PER ORDER. PATIENT DENIES ANY FURTHER NEEDS AT THIS TIME. CALL LIGHT IN REACH.
--- NOTE | 2020-06-12 00:26 | NUR ---
PATIENT RATES PAIN AT A 6/10. PATIENT GIVEN PRN PAIN MEDICATION PER ORDER. PAITENT IS RESTING IN RECLINER. PATIENT DENIES ANY NAUSEA. NO FURTHER NEEDS NOTED. CALL LIGHT IN REACH.
--- NOTE | 2020-06-12 02:12 | NUR ---
PATIENT IS RESTING IN RECLINER. PATIENT VOIDED SMALL AMOUNT AND HAD A SCANT BM. PATIENT STATED "I JUST FEE LOUSY". PATIENT DENIES ANY NAUSEA. PATIENT DENIES THE NEED FOR PAIN MEDICATION. NO FURTHER NEEDS NOTED. CALL LIGHT IN REACH.
--- NOTE | 2020-06-12 04:05 | NUR ---
PATIENT HAD 350ML OF EMESIS. PATIENT GIVEN PRN NAUSEA MEDICATION PER ORDER. PATIENT DENIES ANY NEEDS. CALL LIGHT IN REACH. PATIENT IS RESTING IN RECLINER.
--- NOTE | 2020-06-12 05:17 | NUR ---
PATIENTS VITALS TAKEN AND RECORDED. PATIENTS OXYGEN SATURATION IS AT 90% ON RA. PATIENT DENIES SOB BUT HAS INICREASED RR, RR IS 22. PATIENT APPEARS TO HAVE AN UPPER AIRWAY WHEEZE. PATIENT PLACED ON 2L VIA NC. PATIENT DENIES ANY PAIN OR NASUEA. PATIENT IS RESTING IN RECLINER. INTAKE AND OUPUT RECORDED. PATIENT DENIES ANY FURTHER NEEDS CALL LIGHT IN REACH.
--- NOTE | 2020-06-12 06:07 | NUR ---
PATIENT IS RESTING IN RECLINER. PATIENTS OXYGEN IS OFF. PATIENT ASKED IF HE TOOK IT OFF. PATIENT STATED "I AM NOT WEARING IT, ITS ANNOYING". PATIENT DENIES ANY NEEDS. CALL LIGHT IN REACH.
--- NOTE | 2020-06-12 06:15 | NUR ---
PATIENTS IV IS NO LONGER PATENT. ATTEMPTED TO START IV. PATIENT IS A HARD IV START. INVENTORY SPECIALIST MANAGER ATTEMPTED. PATIENT HAS NO IV AT THIS TIME. WILL NOTIFY .
--- NOTE | 2020-06-12 06:34 | NUR ---
MD IN TO SEE PATIENT. MD TO PLACE ORDER FOR PICC LINE. ALL PATIENT QUESTIONS ANSWERED
--- NOTE | 2020-06-12 07:10 | NUR ---
SHIFT REPORT FROM IMER REES INCLUDED: pts IV was DCd early this morning after infiltration, pt currently without IV. pt has PICC consult scheduled for this morning. pt is back on "clears" diet as well, after having some distention and nausea due to change of diet to "soft" yesterday and not tolerating well. pt is currently up to chair, alert and pleasant upon greeting. pt anticipating PICC consult and shower this morning. pt in chair, table and call light within reach. at bedside.
--- NOTE | 2020-06-12 08:58 | NUR ---
PATIENT JUST GOT OUT OF THE SHOWER. CLEANED UP ALL THE TOWELS. PATIENT IS NOW SITTING UP IN HIS CHAIR.
--- NOTE | 2020-06-12 09:15 | NUR ---
Spoke with Leoncio, he is sitting on the edge of the bed. Complains of nausea. Asked if he plans on dc to home and this is still his plan. Denies needs at this time, awaiting meds for nausea, RN is aware.
--- NOTE | 2020-06-12 09:38 | NUR ---
THIS RN INTO ROOM WITH YAMILE BUNDY. PATIENT SITTING IN CHAIR, EYES CLOSED. AT BEDSIDE. ASSESSMENT COMPLTED. ORAL MEDICATIONS ADMINISTERED FOR 4/10 ABD PAIN. UPON TAKING MEDICATION PATIENT BEGAN TO COUGH THEN VOMIT. 50 MLS OF BILE EMESIS NOTED. ZOFRAN GIVEN FOR NAUSEA. OFFERED PATIENT DILAUDID IV FOR PAIN, PATIENT DECLINED. PATIENT REMAINS IN CHAIR RESTING. ADVISED PATIENT THIS RN WILL BE BACK TO FOLLOW UP WITH HIM. REMAINS AT BEDSIDE, CALL LIGHT IN REACH.
--- NOTE | 2020-06-12 09:50 | NUR ---
ASSESSMENT + MED PASS pt ordered an abdominal CT with contrast this morning. Johana RN had assumed care of pt temporarily and completed the morning med pass and assessment, and she reported that pt had some nausea and vomitting, and was given 8mg zofran. pt ordered the gastrografin to be taken and if he can tolerate the med, we will do the second dose in an hour from now. pt given the dose in applejuice and was able to drink it entirely, without nausea or vomitting. pt denies pain and nausea at this time. pt assessment done by this RN as well. pts VSS, bowel tones hypoactive throughout, lungs clear but diminished in the bases, pts heart sounds distant but regular. pt denies further needs at this time. table and call light within reach.
--- NOTE | 2020-06-12 11:00 | NUR ---
MED PASS pt reports that he is beginning to feel somewhat nauseous at this time, and pt given PRN phenergan at this time, as ordered. pt given second dose of gastrografin at this time, and pt able to drink it without nausea or vomitting. pt denies further needs at this time. table and call light within reach.
--- NOTE | 2020-06-12 12:00 | NUR ---
PATIENT TAKEN TO IMAGING AT THIS TIME + PATIENT CODE BLUE [this report from the charge nurse, Steph REES] pt was taken to imaging around this time. when pt got to imaging, he became pulseless and the zoll monitor detected V-fib. pt was shocked and responded well to tx by returning to sinus rhythm. pt was taken to ER and the flight crew was called to transport patient. we are unable to reach pts at this time, as she hasn't answered her phone.
--- NOTE | 2020-06-12 13:00 | NUR ---
RT COLLECTED COVID 19 SWAB WITH NO COMPLICATIONS. RT USED THE CEPHEID RAPID TEST THROUGH [facility] PER DR REQUEST AT THIS TIME.
--- NOTE | 2020-06-12 13:19 | NUR ---
CRITICAL LAB VALUE RECEIVED. PT LACTIC ACID IS 5.0. FACE TO FACE NOTIFICATION OCCURRED BETWEEN THIS RN AND DR PETTY AT 4070.
--- NOTE | 2020-06-12 13:52 | NUR ---
LEI MICHA WAS CALLED FOR PT IN IMAGING. CPR WAS DONE, PULSE RETURNED. CONNECTED WITH ER STAFF IN ER TRAUMA RM. DR CURTIS REQUESED I CONTACT PT'S AND HAVE HER COME IN. CALLED ALL NUMBERS FOR PT AND HIS GUILLE. [place] [facility] [place] [facility] [place]. DECISION MADE TO [facility] PT TO [facility] IN [place]. SENT CO TO MAKE VISIT AT HOME. GUILLE ARRIVED AND I CANCELLED COUNTY DISPATCH TO DISCONTINUE VISIT. DR FINE ALSO TRIED TO CONTACT FAMILY. HE UPDATED GUILLE ON PT'S CONDITION, SHE IS UNDERSTANDABLY UPSET. SHE WILL DRIVE TO THE [facility] AND PT'S BRO WILL TAKE HER TO [facility]. [facility] AND HAD PRAYER WITH HER. TOOK HER WITH PT'S BELONGINGS TO HER VEHICLE. TRIED TO CONTACT [facility] TO GET VISITATION POLICY. COULD NOT GET THROUGH USING 3 DIFFERENT PHONES ON 3 DIFFERENT LINES. WILL FOLLOW NEEDED
--- NOTE | 2020-06-12 13:52 | NUR ---
1200 THIS RN RESPONDED TO CODE BLUE IN CT. CPR IN PROGRESS. RT AT BEDSIDE PERFORMING BAG-MASKING. ED DR. PETTY IN ROOM. 2ND IV PLACED 18 GUAGE L AC 1202 PT PLACED ON MONITOR, PEA NOTED ON MONITOR. 1 MG EPI ADMINISTERED IVP. 1204 SINUS BRADYCARDIA NOTED ON MONITOR, THEN V-FIB. PT SHOCKED. SINUS TACACARDIA NOTED ON MONITOR. [facility] CALLED. 1204 PT OPENS EYES, FEMORAL PULSE PRESENT. 1205 PT TRANSFERED TO ED TRAUMA RM. 1209 BGL 125 1216 20 MG ETOMIDATE IVP 1216 100 MG SUCCINYLCHOLINE IVP 1217 PT INTUBATED AND PLACED ON VENTALATOR. TITAL VOLUME 500, FI02 80%, R 24, PEEP 5. ET TUBE 8.0, 25@ TEETH. 1220 OG TUBE PLACED. 1000 ML RAINEY FLUID RETURN. [facility] HERE 1223 PROPOFOL 5MCG/KG/MIN STARTED, IV 0.9% NS 1000ML/HR 1228 MIDAZOLAM 2MG IVP 1231 MIDAZOLAM 2MG IVP 1233 PROPOFOL STOPPED FOR LOW BP 1242 KETAMINE 0.5MG/KG/HR 1245 MIDAZOLAM 2MG/HR STARTED 1252 MAGNESIUM 2GR/HR X1 [address] TO RULE OUT DISECTION OR PE 1300 MIDAZOLAM 2MG IVP, PT COVID TESTED 1318 LEVOPHED 2MCG/MIN FOR LOW BP 1320 PT RETURNED TO ED TRAUMA RM 1320 [facility] PACKING PT. 1340 REPORT CALLED TO JAMI REES AT [facility] 1342 PT DEPARTS VIA [facility] HELIC[facility]TER.
--- NOTE | 2020-06-12 14:45 | NUR ---
1208-CODE BLUE CALLED TO CT ROOM , PT PADS PLACED , ENDTIDAL AND CPR IN PROGRESS ON ARRIVAL. I VENTILATED THE PATIENT AND PATIENT HAD TWO RYTHEM CHECKS , ON THE SECOND RYTHEM CHECK A SHOCKABLE RYTHEM WAS IDENTIFYED AND PATIENT WAS SHOCKED , SINUS TACH WAS NOTED ON THE MONITOR WELL AND DETECTABLE PULSES , PT HAD RESPIRATORY EFFORTS,HOWEVER ASSISTED VENTILATION WAS MAINTAINED , PT TRANSFERRED TO ER . PT WAS NOT ABLE TO MAINTAIN SATIFACTORY BREATHING EFFORTS AND WAS INTUBATED WITH A 8.0 EET SECURE WITH BITE BLOCK IN PLACE 25 @ THE TEETH. BILATERAL BS WERE HEARD AND ENDTIDAL WAS READING 70 WITH GOOD WAVEFORM. CHEST XRAY CONFIRMED TUBE PLACEMENT . PT WAS PLACED ON THE VENT BY LUIS CAMACHO AND CARE WAS CONTINUED FROM HIM UNTIL TRANFER TO A HIGHER LEVEL OF CARE.
--- NOTE | 2020-06-13 06:34 | DS ---
[facility] [address], [place] [address] Signed ADMISSION DATE: 06/06/2020 DISCHARGE DATE: 06/12/2020 FINAL DIAGNOSES: 1. Sigmoid colon cancer. 2. Code/respiratory distress. HISTORY OF PRESENT ILLNESS: Isidro is a 64-year-old, obese, diabetic gentleman, who came to us a few weeks ago, probably for GI bleed and mild anemia. He had some shallow ulcers in the stomach and was found to be H. pylori negative. He had been taking quite a bit of Excedrin. He also had multiple polyps throughout the colon along with his diverticulosis. In addition, he had a tumor at 35 cm in the sigmoid colon. The CEA was normal at 1.46. CT scan of chest, abdomen and pelvis did not show any metastatic disease. He came back then on the day of admission for his sigmoid colectomy. HOSPITAL COURSE: Leoncio was taken to the OR on 06/06/2020 for his uncomplicated open sigmoid colectomy. He has an end-to-end hand-sewn anastomosis in two layers. He has had a fairly uneventful postoperative course. He was passing gas. His abdominal exam showed as obese, but he was soft and not distended. He tolerated clear liquids and we moved him up to a soft diet yesterday. This morning, when I came in, he was sitting at the bedside and a little short of breath with abdominal distention. He did have not any peritonitis, but he certainly was distended and full. We went ahead and ordered some labs and his white count right after surgery had been 15 and it was 11 today. The rest of the labs are not available just yet. We decided we would do a CT scan of the abdomen and pelvis to evaluate for any postsurgical changes and our thought was that if that was negative, he might need closer evaluation of his heart and/or his lungs. However he has been on SCDs and anticoagulation. When we brought him down to our CT scanner currently, when he laid back he coded, went into ventricular fibrillation and had to be shocked and brought back and intubated. He is currently in the ER. We are now going around to find a higher level care for him. I did call his and left a message and we have not been able to track her down currently. We will continue to do so. Please see the ER records for additional details. Darcy Fine MD Electronically Signed By: DARCY FINE MD 06/13/20 0634 PATIENT NAME: LEONCIO BRITO DISCHARGE SUMMARY DATE OF : 57 REPORT #: [id number] PHYSICIAN: DARCY FINE MD PCP: MARIETTA PACHECO MD REPORT IS CONFIDENTIAL AND NOT TO BE RELEASED WITHOUT AUTHORIZATION [address] [address] Signed MIRELA/JENISE /[id number] cc: MD Darcy Ballesteros MD Copies: DARCY FINE MD ~ Electronically Signed By: DARCY FINE MD 06/13/20 0634 PATIENT NAME: LEONCIO BRITO ISIDRO DISCHARGE SUMMARY DATE OF : 57 REPORT #: [id number] PHYSICIAN: DARCY FINE MD PCP: MARIETTA PACHECO MD REPORT IS CONFIDENTIAL AND NOT TO BE RELEASED WITHOUT AUTHORIZATION
--- NOTE | 2020-06-13 13:18 | EKG ---
[facility] [address] [facility] [place] [address] Signed Sinus tachycardia with frequent premature ventricular complexes Marked ST abnormality, possible lateral subendocardial injury Abnormal ECG When compared with ECG of 04-JUN-2020 11:15, premature ventricular complexes are now present Vent. rate has increased BY [address] elevation now present in Inferior leads ST elevation now present in Anterior leads ST now depressed in Lateral leads Confirmed by MAY CURTIS DO ([id number]) on 06/13/2020 1:17:58 PM Electronically Signed By: MAY CURTIS DO 06/13/20 1318 PATIENT NAME: AGUILA BRITO Electrocardiogram DATE OF : 57 PHYSICIAN: MAY CURTIS DO REPORT #: [id number] REPORT IS CONFIDENTIAL AND NOT TO BE RELEASED WITHOUT AUTHORIZATION
--- NOTE | 2020-06-13 13:18 | EKG ---
[facility] [address] [facility] [place] [address] \T\ T wave abnormality, consider inferior ischemia Abnormal ECG When compared with ECG of 12-JUN-2020 12:08, (Unconfirmed) premature ventricular complexes are no longer present ST no longer elevated in Inferior leads ST now depressed in Anterior leads T wave inversion now evident in Inferior leads Confirmed by MAY CURTIS DO ([id number]) on 06/13/2020 1:18:08 PM Electronically Signed By: MAY CURTIS DO 06/13/20 1318 PATIENT NAME: AGUILA BRITO Electrocardiogram DATE OF : 57 PHYSICIAN: MAY CURTIS DO REPORT #: [id number] REPORT IS CONFIDENTIAL AND NOT TO BE RELEASED WITHOUT AUTHORIZATION
--- NOTE | 2020-06-16 08:30 | PATH ---
[facility] [address] [facility] [place] [address] Signed SPECIMEN(S): A SIGMOID COLON SPECIMEN SOURCE: A. SIGMOID COLON CLINICAL HISTORY: Colon cancer, diverticulosis, acute ulcer of pyloric antrum, silk suture kan proximal colon. Low anterior resection. FINAL PATHOLOGIC DIAGNOSIS: Colon, sigmoid, resection: - Invasive colonic adenocarcinoma with the following features: - Tumor site: Sigmoid colon. - Tumor size: 6.7 x 5.4 x 0.8 cm. - Macroscopic tumor perforation: Not identified. - Histologic type: Adenocarcinoma. - Histologic grade: G1: Well-differentiated. - Tumor extension: Tumor invades through the muscularis propria into pericolorectal tissue. - Margins: All margins are uninvolved by invasive carcinoma, high-dysplasia/intramucosal carcinoma, and low-grade dysplasia (proximal, distal, and mesenteric margins). - Treatment effect: No known pre-surgical therapy. - Lymphovascular invasion: Not identified. - Perineural invasion: Not identified. - Tumor deposits: Not identified. - Regional lymph nodes: - Number of lymph nodes involved: 1 - Number of lymph nodes examined: 37 - Microsatellite instability testing by IHC: Please refer to previously performed testing ([id number]), interpreted as normal pattern with the following expression patterns: - MLH1: Intact nuclear expression. - MSH2: Intact nuclear expression. - MSH6: Intact nuclear expression. - PMS2: Intact nuclear expression. - Additional findings: Diverticulosis. - Pathologic stage classification (pTNM, AJCC 8th edition): pT3 pN1a COMMENT: PATIENT NAME: AGUILA BRITO PATHOLOGY DATE OF : 57 REPORT #: [id number] PHYSICIAN: [facility] PCP: MARIETTA PACHECO MD REPORT IS CONFIDENTIAL AND NOT TO BE RELEASED WITHOUT AUTHORIZATION [facility] [address] [place] [address] Signed BRAF mutational testing may not be indicated in the absence of metastatic disease and has not been ordered. If testing is desired, please contact [facility]. As part of [facility]' Quality Improvement Program, this case was reviewed by another member of our pathology staff. NAL:NRT:cml:C1NR MICROSCOPIC EXAMINATION: Histologic sections of all submitted blocks are examined by light microscopy. These findings, together with the gross examination, support the pathologic diagnosis. GROSS DESCRIPTION: The specimen, labeled "GC, A," and designated on the requisition "sigmoid colon" is received in formalin and consists of a previously opened, 21.7 cm long, up to 6.2 cm in circumference bowel segment with attached adipose tissue up to 9.2 cm wide. The specimen is oriented with a black suture indicating proximal. The distal end is closed by a 4.3 cm long staple line which is removed and the underlying tissue is inked blue. The proximal end is closed by a 2.8 cm long staple line which is removed and the underlying tissue is inked orange. The bowel serosa is ayala, smooth, glistening, and contains a 4.1 x 3.0 cm area of black tattoo inking that is 3.2 cm from the distal margin and 15.8 cm from the proximal margin. The serosa is inked green. On the colonic mucosa is a centrally ulcerated, ayala, fungating, 6.7 x 5.4 x 0.8 cm lesion that is involves the area of tattoo inking, 3.5 cm from the distal colonic margin, 5.2 cm from the nearest radial margin which is inked black, 6.7 cm from the vascular root margin which is inked red, and 8.7 cm from the proximal margin. The lesion grossly appears to invade through the mucosa, submucosa, muscularis, and into the attached adipose tissue. The lesion does not grossly appear to involve the serosa. The mucosa also has multiple outpouchings consistent with diverticula. The outpouchings are without gross evidence of perforation or abscess. The outpouchings grossly appear to involve the proximal staple line and are 1.3 cm from the distal staple line. The remaining bowel mucosa is ayala with usual folds and without an additional discrete mass/lesion. The attached adipose tissue is removed, sectioned, placed in lymph node revealer (Reveal) overnight, and palpated for lymph nodes. 36 pink-ayala to ayala-white lymph node candidates from 0.2 up to 1.3 cm PATIENT NAME: AGUILA BRITO PATHOLOGY DATE OF : 57 REPORT #: [id number] PHYSICIAN: [facility] PCP: MARIETTA PACHECO MD REPORT IS CONFIDENTIAL AND NOT TO BE RELEASED WITHOUT AUTHORIZATION [facility] [address] [place], [place] [address] Signed in greatest dimension are found. Coatings Inspector sections are submitted as follows: A1 distal colonic margin cut surface down A2 radial margin cut surface down A3 vascular root margin cut surface down A4-A5 proximal margin cut surface down A6-A7 lesion depth of invasion A8-A9 lesion to serosa A10 lesion to area of black tattoo inking A11 lesion to normal mucosa A12 outpouchings A13 remaining mucosa A14 one trisected lymph node candidate A15-A16 one quadrisected lymph node candidate A17 4 lymph node candidates in toto A18 4 lymph and candidates in toto A19 4 lymph node candidates in toto A20 4 lymph node candidates in toto A21 3 lymph node candidates in toto A22 3 lymph node candidates in toto A23 3 lymph node candidates in toto A24 2 lymph node candidates in toto A25 2 lymph node candidates in toto A26 2 lymph node candidates in toto A27 one bisected lymph node candidate A28 one bisected lymph node candidate A29 one bisected lymph node candidate A30 one bisected lymph node candidate A31 one bisected lymph node candidate A32 one bisected lymph node candidate A33 one bisected lymph node candidate AI (under the direct supervision of a pathologist) The Gross Description was prepared using a voice recognition system. The report was reviewed for accuracy; however, sound-alike word errors, addition and/or deletions may occur. If there is any question about this report, please contact Client Services. PERFORMING LABORATORY: The technical component was performed by [facility], [address] [place] [id number] (Title Camera Operator: Serena Diaz MD; CLIA# [id number]). PATIENT NAME: AGUILA BRITO PATHOLOGY DATE OF : 57 REPORT #: [id number] PHYSICIAN: [facility] PATHOLOGY PCP: MARIETTA PACHECO MD REPORT IS CONFIDENTIAL AND NOT TO BE RELEASED WITHOUT AUTHORIZATION [facility] [address] [place], [place] [address] Signed [facility], [address] [facility] [address], [place] [address] (CLIA# [id number]). Diagnostician: Aranza Fletcher MD Pathologist Electronically Signed 06/16/2020 Copies: ~ PATIENT NAME: AGUILA BRITO [facility] PATHOLOGY DATE OF : 57 REPORT #: [id number] PHYSICIAN: [facility] PCP: MARIETTA PACHECO MD REPORT IS CONFIDENTIAL AND NOT TO BE RELEASED WITHOUT AUTHORIZATION
== END 2020-06-12 14:45 | disposition short-term general hospital (02) | DRG 329 ==
LOC: MS 06-06 09:00 → DSVR 06-06 09:42 → MS 06-06 09:42
PROVIDERS: ADMIT Colon & Rectal Surgery; ATTEND Colon & Rectal Surgery
PROC: 3E0T3BZ Introduction of Anesthetic Agent into Peripheral Nerves and Plexi, Percutaneous Approach (ICD-10-PCS; 2020-06-06)
PROC: 3E0T33Z Introduction of Anti-inflammatory into Peripheral Nerves and Plexi, Percutaneous Approach (ICD-10-PCS; 2020-06-06)
PROC: 0DTN0ZZ Resection of Sigmoid Colon, Open Approach (ICD-10-PCS; principal; 2020-06-06 11:00)
PROC: 5A12012 Performance of Cardiac Output, Single, Manual (ICD-10-PCS; 2020-06-12)
PROC: 0BH17EZ Insertion of Endotracheal Airway into Trachea, Via Natural or Artificial Opening (ICD-10-PCS; 2020-06-12)
PROC: 5A1935Z Respiratory Ventilation, Less than 24 Consecutive Hours (ICD-10-PCS; 2020-06-12)
DX: C18.7 Malignant neoplasm of sigmoid colon (principal); I49.01 Ventricular fibrillation; G89.18 Other acute postprocedural pain; Z20.822 Contact with and (suspected) exposure to COVID-19; R06.03 Acute respiratory distress; E11.9 Type 2 diabetes mellitus without complications; K57.30 Diverticulosis of large intestine without perforation or abscess without bleeding; I10 Essential (primary) hypertension; E66.9 Obesity, unspecified; G89.29 Other chronic pain; Z68.37 Body mass index [BMI] 37.0-37.9, adult; Z79.899 Other long term (current) drug therapy; Z79.1 Long term (current) use of non-steroidal anti-inflammatories (NSAID); Z88.5 Allergy status to narcotic agent; Z88.8 Allergy status to other drugs, medicaments and biological substances
CPT/HCPCS: 00790; 31500; 36415; 64448; 71045; 71275; 74175; 74177; 76942; 80048; 80053; 83605; 83735; 84100; 84484; 85025; 86850; 86900; 86901; 86920; 92950; 93005; 93010; 94002; 94799; C9113; C9803; J0171; J0330; J0690; J1100; J1644; J1650; J1885; J2001; J2250; J2405; J2550; J2704; J2795; J3475; J7060; J7121; Q9967; U0003

== ENCOUNTER 2021-06-03 08:22 | Day surgery (SDC) | payer OTHER ==
[~2021-06-03] VITALS: Ht 185.4 cm; Wt 135.7 kg
[~2021-06-03 08:22] MED LIST changes: +K-TAB ER20 MEQ PO; +LASIX40 MG PO; +MELATONIN5 M2 PO
[2021-06-03] MEDS ORDERED: TYLENOL325 MG PO (08:38)
[2021-06-03] MEDS ORDERED: ASPIRIN81 MG PO (08:38)
[2021-06-03] MEDS ORDERED: LIPITOR10 MG (08:39)
--- NOTE | 2021-06-03 10:58 | NUR ---
06/03/21 1058 Marilyn Lynne 1051 PATIENT ARRIVES TO PACU UNRESPONSIVE TO PAIN, ORAL AIRWAY IN PLACE. RESP EVEN AND UNLABORED, MASK AT 10 LITERS, DECREASED TO 6 LITERS. 1054 PATIENT COUGHING. ORAL AIRWAY REMOVED. PATIENT NO LONGER COUGHING. OPENS EYES WITH VERBAL STIMULI. RESP EVEN AND UNLABORED, SATS 100% ON ROOM AIR.
--- NOTE | 2021-06-03 12:00 | OR ---
[facility] [address] [place], [place] [address] Signed DATE OF OPERATION: 06/03/2021 SURGEON: Darcy Fine MD PREOPERATIVE DIAGNOSES: 1. Stage III sigmoid colon cancer May 2020. 2. Sigmoid colectomy with end to end colorectal anastomosis. 3. Diverticulosis. 4. Internal hemorrhoids. 5. Personal history of colonic polyps. POSTOPERATIVE DIAGNOSES: 1. Colorectal anastomosis end to end at 28 cm. 2. Minimal internal hemorrhoids. 3. Minimal left-sided diverticulosis. 4. 4 mm polyp at 15 cm/rectum. 5. 4 mm polyp at 50 cm/left colon. 6. Colon length approximately 100 cm. PROCEDURE: Colonoscopy with hot biopsy. ESTIMATED BLOOD LOSS: None. INDICATIONS: Isidro is a 65-year-old obese gentleman, who returns for his one year followup colonoscopy for the stage III colon cancer diagnosed in May 2020. He had lymph nodes positive. He declined IV chemotherapy. He took an oral tablet. His colon anastomosis to the rectum is at 28 cm and sewn end to end in two layers. He is known to have pandiverticulosis along with internal hemorrhoids. He has had colonic polyps removed as well. He is a very large man, although he has lost weight and is down to 296 pounds but is 6 feet tall. He has a very heavy face with a heavy pedersen. His chest and abdomen are very heavy. Therefore, he always requires monitored anesthesia care. In addition, he actually fell and injured his neck. His chin is practically on his chest at this point. That is another reason to have monitored anesthesia care. He said currently he has no lower GI complaints. There is no family history of colon cancer or polyps. In the office, I gave him a pamphlet on colonoscopy. He remembers the test quite well. We reviewed the written instructions for bowel prep together and he remembers that in detail as well. I reminded him of the need for monitored anesthesia Electronically Signed By: DARCY FINE MD 06/03/21 1200 PATIENT NAME: AGUILA BRITO OPERATIVE REPORT DATE OF : 57 REPORT #: [id number] PHYSICIAN: DARCY FINE MD PCP: MARIETTA PACHECO MD REPORT IS CONFIDENTIAL AND NOT TO BE RELEASED WITHOUT AUTHORIZATION [facility] [address] [place] [address] Signed care and of course he is in agreement with that recommendation. He had expressed understanding and wished to proceed. PROCEDURE NOTE: Isidro was taken into our endoscopy suite and placed in the left lateral decubitus position. He was given monitored anesthesia care with propofol per our nurse weigher and charger. A digital rectal exam was performed and he has good sphincter tone. His prostate glands are moderately enlarged and indurated. The adult colonoscope had been introduced and advanced all the way up to the top of the rectum through the anastomosis and into the cecum itself. His colon is about 100 cm in length. Overall, his prep was good. It would not hurt if he took a little more prep in the future. We could easily see the appendiceal orifice and ileocecal valve. The scope was then slowly withdrawn. We took pictures throughout for photodocumentation. The two polyps mentioned above were removed completely with the help of a hot biopsy forceps. Again, he has diverticulosis. They are moderate in size, few to moderate in number, and scattered about. The scope was then retroflexed in the rectum and he does have minimal internal hemorrhoids. We can see the colorectal anastomosis at 28 cm. It has been sewn end to end. We could see two silk sutures. No evidence of any recurrent cancer, granulation tissue, ulceration or other issue. It appears to be widely patent. After this, the gas was suctioned out and the colonoscope removed. Isidro tolerated the procedure quite well. RECOMMENDATIONS: I will see Isidro back in my office in 7 to 14 days to review his results. He will be back in one year for repeat colonoscopy. He might consider just a little bowel prep in the future. Darcy Fine MD [facility]/MODL /[id number] cc: MD Demetra Ballesteros MD Andrew L Bower, MD Electronically Signed By: DARCY FINE MD 06/03/21 1200 PATIENT NAME: AGUILA BRITO OPERATIVE REPORT DATE OF : 57 REPORT #: [id number] PHYSICIAN: DARCY FINE MD PCP: MARIETTA PACHECO MD REPORT IS CONFIDENTIAL AND NOT TO BE RELEASED WITHOUT AUTHORIZATION [address] [address] Signed Copies: DEMETRA SHEA MD, ANDREW L MD ~ Electronically Signed By: DARCY FINE MD 06/03/21 1200 PATIENT NAME: AGUILA BRITO ISIDRO OPERATIVE REPORT DATE OF : 57 REPORT #: [id number] PHYSICIAN: DARCY FINE MD PCP: MARIETTA PACHECO MD REPORT IS CONFIDENTIAL AND NOT TO BE RELEASED WITHOUT AUTHORIZATION
--- NOTE | 2021-06-04 16:27 | PATH ---
[facility] [address] [place], [place] [address] Signed SPECIMEN(S): A POLYP AT 15 CM SPECIMEN(S): B POLYP AT 50 CM SPECIMEN SOURCE: A. POLYP AT 15 CM B. POLYP AT 50 CM CLINICAL HISTORY: Personal history of sigmoid carcinoma, colon polyps, diverticulosis, internal hemorrhoids. FINAL PATHOLOGIC DIAGNOSIS: A. Colon, polyp at 15 cm, polypectomy: - Colonic mucosa with no histopathologic abnormality. - Negative for dysplasia or malignancy. B. Colon, polyp at 50 cm, polypectomy: - Tubular adenoma. - Negative for high-grade dysplasia or malignancy. COMMENT: Regarding specimen A: Multiple additional deeper levels were examined. NAL:cml:C2NR MICROSCOPIC EXAMINATION: Histologic sections of all submitted blocks are examined by light microscopy. These findings, together with the gross examination, support the pathologic diagnosis. GROSS DESCRIPTION: Two specimens are received in two containers, labeled "GC." A. The specimen, labeled "GC," and designated on the requisition "polyp at 15 cm," is received in formalin and consists of one ayala soft tissue fragment that measures 0.2 cm in greatest dimension. The specimen is entirely submitted in cassette (A1). B. The specimen, labeled "GC," and designated on the requisition "polyp at 50 cm," is received in formalin and consists of two ayala soft tissue fragments that measure 0.2 cm in greatest dimension. The specimen is entirely submitted in cassette (B1). AT (under the direct supervision of a pathologist) The Gross Description was prepared using a voice recognition system. The report was reviewed for accuracy; however, sound-alike word errors, addition and/or PATIENT NAME: AGUILA BRITO PATHOLOGY DATE OF : 57 REPORT #: [id number] PHYSICIAN: [facility] PCP: MARIETTA PACHECO MD REPORT IS CONFIDENTIAL AND NOT TO BE RELEASED WITHOUT AUTHORIZATION [facility] [address] [place] [address] Signed deletions may occur. If there is any question about this report, please contact Client Services. PERFORMING LABORATORY: The technical component was [place] [id number] (CLIA# [id number]). Professional interpretation was performed by [email or web address], [address] [address] (CLIA# [id number]). Diagnostician: Aranza Fletcher MD Pathologist Electronically Signed 06/04/2021 Copies: ~ PATIENT NAME: AGUILA BRITO PATHOLOGY DATE OF : 57 REPORT #: [id number] PHYSICIAN: [facility] PCP: MARIETTA PACHECO MD REPORT IS CONFIDENTIAL AND NOT TO BE RELEASED WITHOUT AUTHORIZATION
== END 2021-06-03 11:25 | disposition home or self-care (01) ==
LOC: DS 08:22 → OPS 08:22 → DS 10:15 → OPS 11:25
PROVIDERS: ATTEND Colon & Rectal Surgery
PROC: 0DBE8ZZ Excision of Large Intestine, Via Natural or Artificial Opening Endoscopic (ICD-10-PCS; principal; 2021-06-03 10:15)
DX: D12.6 Benign neoplasm of colon, unspecified (principal); K57.30 Diverticulosis of large intestine without perforation or abscess without bleeding; K64.8 Other hemorrhoids; E66.9 Obesity, unspecified; I10 Essential (primary) hypertension; E11.9 Type 2 diabetes mellitus without complications; Z85.038 Personal history of other malignant neoplasm of large intestine; Z86.010 Personal history of colon polyps; Z90.49 Acquired absence of other specified parts of digestive tract; Z88.5 Allergy status to narcotic agent; Z88.8 Allergy status to other drugs, medicaments and biological substances; Z68.37 Body mass index [BMI] 37.0-37.9, adult
CPT/HCPCS: J1160; J2704; J7121

== ENCOUNTER 2022-07-16 06:16 | Day surgery (SDC) | payer MEDICARE, OTHER ==
[2022-07-08 11:25] VITALS: BP 123/78
[~2022-07-16] VITALS: Ht 185.4 cm; Wt 131.8 kg
[~2022-07-16 06:16] MED LIST changes: +ASPIRIN81 MG PO; +CHLORTHALIDONE25 MG PO; +LIPITOR10 MG; +TYLENOL325 MG PO
[2022-07-16 06:36] VITALS: BP 142/81
--- NOTE | 2022-07-16 08:40 | NUR ---
PT ALERT, ORIENTED AND SUPPORTED BY HIS . PT HAS HAD SCOPE BEFORE AND DUE TO COMPLICATIONS WAS LIFEFLIGHTED TO ANOTHER FACILITY. GAVE ENCOURAGEMENT AND SUPPORT. WILL FOLLOW
--- NOTE | 2022-07-16 09:34 | NUR ---
07/16/22 0934 Olamide Amezquita PT TO PACU AWAKE, PT ASKED TO SIT IN A CHAIR, HELPED HIM OUT OF BED AND INTO A CHAIR REPORTS HE IS MORE COMFORTABLE IN CHAIR. DENIES PAIN OR NAUSEA
[2022-07-16 10:07] VITALS: BP 117/78
--- NOTE | 2022-07-16 10:52 | OR ---
[facility] [address] [place], [place] [address] Signed DATE OF OPERATION: 07/16/2022 SURGEON: Darcy Fine MD PREOPERATIVE DIAGNOSES: 1. Stage III sigmoid colon cancer in May 2020 with lymph nodes positive. 2. Sigmoidectomy with end-to-end colorectal anastomosis at 28 cm. 3. Minimal diverticulosis. 4. Personal history of colonic polyps in 2020. POSTOPERATIVE DIAGNOSES: 1. Minimal to moderate left-sided diverticulosis. 2. Minimal internal hemorrhoids. 3. 12 mm lipoma at the hepatic flexure. 4. End-to-end colorectal anastomosis at 28 cm. 5. 4 mm polyp at 27 cm proximal rectum. 6. 3 mm polyp at hepatic flexure. PROCEDURE: Colonoscopy with hot biopsy. ESTIMATED BLOOD LOSS: None. INDICATIONS: Isidro is a 66-year-old obese diabetic gentleman, who returns for followup colonoscopy. I helped him with his colonoscopy in April of 2020 for melanotic stool and his anemia. He had multiple adenomatous and villous adenomatous polyps removed. They measured anywhere from 4 mm up to 12 mm in diameter. He also had a nearly obstructing stage III colon cancer at 35 cm along with diverticulosis and internal hemorrhoids. I performed his open sigmoid resection in May that same year. lymph nodes were positive. He has an end-to-end hand-sewn anastomosis at 28 cm. He suffered some level of respiratory and/or cardiac arrest postoperatively. He ended up at [facility] in [place], [place]. He did well after his diuresis. He has been following along with his armored cable machine operator, Dr. Gallardo in [place], [place]. His last note has been reviewed. Everything has been stable. He also follows along with his environment artist/oncologist, Dr. Demetra Shea. He said his neck has been stiff and his chin is pretty much on this chest following his cardiac arrest and CPR. He said physical therapy and the chiropractor has not helped. He said he has been eating well and maintaining his weight. He said he has good bowel movements. He returns now for a followup colonoscopy. In the office, I gave Electronically Signed By: DARCY FINE MD 07/16/22 1052 PATIENT NAME: AGUILA BRITO OPERATIVE REPORT DATE OF : 57 REPORT #: [id number] PHYSICIAN: DARCY FINE MD PCP: AFSHAN PACHECO MD REPORT IS CONFIDENTIAL AND NOT TO BE RELEASED WITHOUT AUTHORIZATION [facility] [address] [place], [place] [address] Signed him a pamphlet on colonoscopy. He understands the test well. There is risk including, but not limited to gas bloating, crampy abdominal pain, bleeding, perforation requiring surgery and missed diagnosis. He understands our bowel prep quite well. We always use monitored anesthesia care given his body mass index, his very full face with pedersen and now his chin is pretty much on his chest. In fact that proved to be a maria decision as it did last year. He had expressed understanding and wished to proceed. PROCEDURE NOTE: Isidro was taken into our endoscopy suite and placed in the left lateral decubitus position. As always, he is a little anxious. It took a few minutes to help him relax. After this, he was given monitored anesthesia care with propofol per our nurse lens grinder and polisher. A digital rectal exam was performed and he does not have too much in the way of any external hemorrhoid tissue. There were no masses. His sphincter tone is a little decreased, I think mainly from the propofol. The adult colonoscope had been introduced and advanced under direct visualization up into the cecum. It took a little extra propofol and abdominal compression in order to get the scope in the cecum. Fortunately, his colon was not particularly long. His prep was good. We could easily see the appendiceal orifice and the ileocecal valve. The scope was then slowly withdrawn. The above-mentioned polyps were easily removed with the help of hot biopsy forceps. He does have a small 12 mm lipoma in the hepatic flexure. We took a picture for photodocumentation. He does have some diverticula in the left colon. They were moderate in size, few in number, and scattered about. Once in the rectum, the scope had been retroflexed and he does have minimal internal hemorrhoid tissue. After this, the gas was suctioned out and the colonoscope removed. Isidro tolerated his procedure quite well. RECOMMENDATIONS: I will see Isidro back in my office in 7 to 14 days to review his results. He has had adenomatous polyps the year after his sigmoid resection and it looks like he is going to have some again this year. I suspect based on that finding, he will need colonoscopy in one year. Darcy Fine MD ALB/KARONL /[id number] Electronically Signed By: DARCY FINE MD 07/16/22 1052 PATIENT NAME: AGUILA BRITO OPERATIVE REPORT DATE OF : 57 REPORT #: [id number] PHYSICIAN: DARCY FINE MD PCP: AFSHAN PACHECO MD REPORT IS CONFIDENTIAL AND NOT TO BE RELEASED WITHOUT AUTHORIZATION [address] [place] [address] Signed cc: MD Afshan Fu MD Suwong Wongsuwan, MD Darcy Fine MD Copies: DEMETRA SHEA MD, SUWONG MD BOWER, ANDREW L MD ~ Electronically Signed By: DARCY FNIE MD 07/16/22 1052 PATIENT NAME: AGUILA BRITO OPERATIVE REPORT DATE OF : 57 REPORT #: [id number] PHYSICIAN: DARCY FINE MD PCP: AFSHAN PACHECO MD REPORT IS CONFIDENTIAL AND NOT TO BE RELEASED WITHOUT AUTHORIZATION
--- NOTE | 2022-07-19 14:43 | PATH ---
[facility] [address] [place], [place] [address] Signed SPECIMEN(S): A PROXIMAL RECTAL POLYP AT 27 CM SPECIMEN(S): B HEPATIC FLEXURE POLYP SPECIMEN SOURCE: A. PROXIMAL RECTAL POLYP AT 27 CM B. HEPATIC FLEXURE POLYP CLINICAL HISTORY: Colonoscopy. Personal history of colon cancer. Postop Dx: Diverticulosis, polyps x 2, internal hemorrhoids. FINAL PATHOLOGIC DIAGNOSIS: A. Proximal rectal polyp at 27 cm: - Tubular adenoma. - Negative for high-grade dysplasia. B. Hepatic flexure polyp: - Hyperplastic polyp. - Negative for dysplasia. NA:[id number]:[id number] MICROSCOPIC EXAMINATION: Histologic sections of all submitted blocks are examined by light microscopy. These findings, together with the gross examination, support the pathologic diagnosis. GROSS DESCRIPTION: A. The specimen, labeled and designated "Abraham, proximal rectal polyp at 27 cm," is received in formalin and consists of one ayala, soft tissue fragment up to 0.3 cm. Entirely submitted in (A1). B. The specimen, labeled and designated "Abraham, hepatic flexure polyp," is received in formalin and consists of multiple ayala, soft tissue fragments ranging from 0.1-0.3 cm. Entirely submitted in (B1). VB (under the direct supervision of a pathologist) The Gross Description was prepared using a voice recognition system. The report was reviewed for accuracy; however, sound-alike word errors, addition and/or deletions may occur. If there is any question about this report, please contact Client Services. PERFORMING LABORATORY: The technical component was performed by [facility], Earlene Griggs, PATIENT NAME: AGUILA BRITO PATHOLOGY DATE OF : 57 REPORT #: [id number] PHYSICIAN: ZEN PARMAR PCP: MARIETTA PACHECO MD REPORT IS CONFIDENTIAL AND NOT TO BE RELEASED WITHOUT AUTHORIZATION [facility] [address] [place], [place] [address] [place] [address] (CLIA# [id number]). Professional interpretation was performed by [employer] [facility], [facility], [address] [place] [id number] (CLIA#: [id number]) Diagnostician: Izabella Campbell MD Pathologist Electronically Signed 07/19/2022 Copies: ~ PATIENT NAME: AGUILA BRITO PATHOLOGY DATE OF : 57 REPORT #: [id number] PHYSICIAN: ZEN PARMAR PCP: MARIETTA PACHECO MD REPORT IS CONFIDENTIAL AND NOT TO BE RELEASED WITHOUT AUTHORIZATION
== END 2022-07-16 10:00 | disposition home or self-care (01) ==
LOC: OPS 06:16 → DS 06:16 → OPS 07:30
PROVIDERS: ATTEND Colon & Rectal Surgery
PROC: 0DBE8ZX Excision of Large Intestine, Via Natural or Artificial Opening Endoscopic, Diagnostic (ICD-10-PCS; principal; 2022-07-16 08:10)
DX: Z12.11 Encounter for screening for malignant neoplasm of colon (principal); D12.8 Benign neoplasm of rectum; K57.30 Diverticulosis of large intestine without perforation or abscess without bleeding; K64.8 Other hemorrhoids; D17.5 Benign lipomatous neoplasm of intra-abdominal organs; I10 Essential (primary) hypertension; E11.9 Type 2 diabetes mellitus without complications; E66.01 Morbid (severe) obesity due to excess calories; Z86.010 Personal history of colon polyps; Z85.038 Personal history of other malignant neoplasm of large intestine; Z79.82 Long term (current) use of aspirin; Z88.5 Allergy status to narcotic agent; Z88.8 Allergy status to other drugs, medicaments and biological substances; Z86.74 Personal history of sudden cardiac arrest; Z98.0 Intestinal bypass and anastomosis status
CPT/HCPCS: J2704; J7121

== ENCOUNTER 2023-12-21 11:23 | Emergency (ER) | payer MEDICARE, OTHER ==
[~2023-12-21] VITALS: Ht 185.4 cm; Wt 132.4 kg
[~2023-12-21 11:23] MED LIST changes: +CLARITIN10 M2 PO; +CLEOCIN HCL300 MG PO; +HYDROCHLOROTH12.5 MG PO
[2023-12-21 12:36] LABS: ALBUMIN 3.7 g/dL (3.4-5.0); ALBUMIN/GLOBULIN RATIO 0.95 (1.1-2.4); ANION GAP 6.9 (7-21); BILIRUBIN, TOTAL 1.8 ng/dL (0.2-1.0); CALCIUM 9.2 mg/dL (8.5-10.1); MAGNESIUM 1.8 mg/dL (1.8-2.4); POTASSIUM 3.9 mmol/L (3.5-5.1); PROTEIN, TOTAL 7.6 g/dL (6.4-8.2)
[2023-12-21 12:44] LABS: BUN/CREATININE RATIO 13.58 (6.0-28.6); CREATININE, SERUM 0.81 mg/dL (0.70-1.30)
[2023-12-21 14:05] LABS: BASOPHILS 0.2 % (0-2); EOSINOPHILS 0.8 % (0-6); HEMOGLOBIN 15.5 g/dL (12.0-18.0); LYMPHOCYTES 9.3 % (24-44); MCH 30.5 (27-36); MCHC 32.9 g/dl (30-36); MCV 92.5 fl (81-99); MONOCYTES 8.2 % (0-12); NEUTROPHILS 81.5 % (39-80); PLATELET COUNT 207 K/uL (140-440); RBC 5.08 M/ul (4.3-5.7); RDW 14.5 (10.5-15.0)
[2023-12-21 17:13] VITALS: BP 129/80
--- NOTE | 2023-12-22 15:27 | EKG ---
[facility] [address] [facility] [place] [address] Signed Normal sinus rhythm Normal ECG When compared with ECG of 07-NOV-2023 13:17, ST no longer elevated in Lateral leads Confirmed by Nino Dawn MD ([id number]) on 12/22/2023 3:27:32 PM Electronically Signed By: NINO DAWN MD 12/22/23 1527 PATIENT NAME: HILARY BRITOJavon BOURNE Electrocardiogram DATE OF : 57 PHYSICIAN: NINO DAWN MD REPORT #: [id number] REPORT IS CONFIDENTIAL AND NOT TO BE RELEASED WITHOUT AUTHORIZATION
== END 2023-12-21 17:10 | disposition home or self-care (01) ==
LOC: ED 11:23
PROVIDERS: Emergency Medicine
DX: R79.89 Other specified abnormal findings of blood chemistry (principal); I10 Essential (primary) hypertension; Z88.8 Allergy status to other drugs, medicaments and biological substances; Z88.5 Allergy status to narcotic agent; Z79.899 Other long term (current) drug therapy
CPT/HCPCS: 36415; 80053; 83735; 84484; 85025; 93005; 93010; 99283

== ENCOUNTER 2024-02-01 08:25 | Day surgery (SDC) | payer MEDICARE, OTHER ==
[2023-11-07 13:11] VITALS: BP 112/58
[2023-12-12 15:35] VITALS: BP 127/72
--- NOTE | 2023-12-21 11:25 | NUR ---
PT IN ROOM 5, CHANGED FOR COLONOSCOPY. THIS RN IN TO START PT IV. WHILE SETTING UP SUPPLIES, PT SAT UP ABRUPTLY. PT REPORTS HE DOESN'T KNOW WHY, DENIES NEEDING THE RESTROOM. PT STATES "I HAVE THAT TASTE IN MY MOUTH THAT I HAD BEFORE I COLLAPSED" TO HIS IN THE ROOM. PT PLACED ON BP CUFF AND OXIMETER WITH BP 148/79 HR 72 O2 SATS 97% ON 2L PER NC WHICH IS PT CHRONIC HOME USE. PT DENIES CHEST PAIN OR ANY OTHER SYMPTOMS JUST CONTINUES TO TALK ABOUT A "METALLIC TASTE". PT STATES "I DON'T THINK I SHOULD DO THIS TODAY WITH THIS TASTE IN MY MOUTH". DR FINE NOTIFIED, PT DECIDES TO CANCEL. THINKS PT SHOULD GO TO THE ER FOR EVALUATION BECAUSE SHE DOESN'T WANT HIM "TO CODE" ON THE WAY HOME. ER NOTIFIED, PT TAKEN DOWN IN WHEEL CHAIR TO ER TO CHECK IN.
[2024-01-23 13:17] VITALS: BP 151/77
[~2024-02-01] VITALS: Ht 182.9 cm; Wt 129.5 kg
[~2024-02-01 08:25] MED LIST changes: +IBLOOD GLUCOSE TEST STRIP 1 EA TEST VI PRN; +LACTATED RINGER'S 1,000 ML IV SCH; +LIDOCAINE HCL 1% 5 ML SDV INJ ONE
[2024-02-01 08:52] VITALS: BP 168/85
[2024-02-01] MEDS ORDERED: propofoL 200 MG/20 ML VIAL ONE (11:45)
[2024-02-01] MEDS ORDERED: LIDOCAINE HCL 2% 5 ML SDV ONE (11:45)
[2024-02-01 13:18] VITALS: BP 131/74
--- NOTE | 2024-02-01 13:26 | NUR ---
02/01/24 1326 Sharon Smith 1214 PT ARRIVED IN PACU AWAKE WITH NO C/O'S. ABD SOFT AND PASSING FLATUS. 1220 OXYGEN MASK REMOVED AND PT PLACED ON 2L NC. 1230 SITTING AT SIDE OF BED SIPPING ON OJ. 1235 UP TO BSC. VOIDED. BACK ON BED GETTING DRESSED WITH STAND BY ASSIST. 1245 DC INSTRUCTIONS GIVEN. ALL QUESTIONS ANSWERED. 1252 LEFT VIA W/C WITH OWN O2 IN PLACE.
--- NOTE | 2024-02-01 16:06 | OR ---
[facility] [address] [place], [place] [address] Signed DATE OF OPERATION: 02/01/2024 SURGEON: Darcy Fine MD PREOPERATIVE DIAGNOSES: 1. Stage III sigmoid colon cancer in 2020. 2. Open sigmoid resection in 2020. 3. Lipoma at hepatic flexure. 4. Diverticulosis. 5. Personal history of colonic polyps starting in 2020. POSTOPERATIVE DIAGNOSES: 1. End-to-end colorectal anastomosis at 22-25 cm. 2. A 4 mm polyp at mid transverse colon. 3. A 4 mm polyp at 28 cm in left colon. 4. Qxgaqyb-tv-rwmxzysv pandiverticulosis. 5. Moderate internal hemorrhoids. PROCEDURE: Colonoscopy with hot biopsy. ESTIMATED BLOOD LOSS: None. INDICATIONS: Isidro is a 68-year-old obese diabetic gentleman, who is returning for a followup colonoscopy. I met him in April 2020 when he had melanotic stool and anemia. I helped him with a colonoscopy revealing multiple adenomatous and a villous adenomatous polyp. They were anywhere from 4 mm up to 12 mm in diameter. He also had a nearly obstructing stage III colon cancer at 35 cm along with his diverticular disease and internal hemorrhoids. I performed his open sigmoid resection in May that same year. One out of his 37 lymph nodes came back positive. He has an end-to-end hand-sewn anastomosis in two layers at around 20 cm or so. He postoperatively had trouble with respiratory and cardiac arrest. He ended up at [facility] in [place], [place]. He did well after the diuresis. He now follows along with his orthopedic specialist, Dr. Gallardo in [place], [place]. We reviewed those notes from this year. He also went to see his business continuity consultant, Dr. Leia Hill also in [place], [place]. He has a very severe restrictive lung pattern with quite a bit of strain on his right heart. He is now using oxygen intermittently. He actually came to us earlier in the year and we had to cancel the colonoscopy because he felt like he was having recurrent symptoms of a heart attack. Electronically Signed By: DARCY FINE MD 02/01/24 1606 PATIENT NAME: AGUILA BRITO OPERATIVE REPORT DATE OF : 57 REPORT #: [id number] PHYSICIAN: DARCY FINE MD PCP: MARIETTA PACHECO MD REPORT IS CONFIDENTIAL AND NOT TO BE RELEASED WITHOUT AUTHORIZATION [facility] [address] [place], [place] [address] Signed That worked out well, he had been discharged directly home from the ER. I helped him with another colonoscopy in June of 2022. He had a 4 mm tubular adenomatous polyp taken out at 27 cm at 3 mm polyp at hepatic flexure, which was hyperplastic. He also has a lipoma at the hepatic flexure. He is known to have internal hemorrhoids. He also has diverticulosis. In the meantime, he said he is doing well and having good bowel movements. For some reason, he does not like the Lasix, so they moved him over to hydrochlorothiazide. He comes today for his repeat colonoscopy. We took quite a bit of time to review his cardiac and pulmonary records myself and the anesthesia provider. Isidro is clearly ASA state class IV. He is getting to where we probably could do much for him other than a simple colonoscopy here in our hospital. In the office, I gave him our brochure on colonoscopy. He recalls the nature of the test. There is risk including, but not limited to gas bloating, crampy abdominal pain, bleeding, perforation requiring surgery, and missed diagnosis. We also reviewed the need for monitored anesthesia care given his rather significant health issues and decreased functional and medical status. Also, his neck is flexed and he cannot extend the neck. He has a very difficult airway tissue. He had told me probably doing more colonoscopies. Apparently, he is still living at home with his . He is very disheveled and is clear he is not able to take care of himself to any significant degree. He had expressed understanding and wanted to proceed. PROCEDURE IN DETAIL: Isidro was taken into our endoscopy suite and placed in the left lateral decubitus position. He was given monitored anesthesia care, propofol infusion per nurse hand laster. He required constant attention from our anesthesia provider. A digital rectal exam was performed and this was unremarkable. He had no external hemorrhoids and good sphincter tone. There were no masses. He has terrible fungal infection underneath his pannus and terrible venous stasis changes of both legs. He has a lot of discoloration also on the back of his thighs and around his buttocks. He is very malodorous as well. The adult colonoscope was introduced and advanced under direct visualization of camera without difficulty. Unfortunately, his prep was moderate. He had a couple areas of liquid particulate stool matter I could not quite suction out completely. He would do well to use a full gallon of polyethylene glycol along with some Dulcolax tablets for any future colonoscopies. He would be best to start that first thing in the morning. We were able to identify the cecum along with the appendiceal orifice and ileocecal valve. The scope was then slowly withdrawn. He indeed has diverticula throughout the colon. They were moderate in size, few in number and scattered about. He had two small polyps, which were removed with the help of hot biopsy forceps. We could see the anastomosis right around 22, maybe 25 cm. We actually saw a couple of silk sutures. It is well healed without any granulation tissue or ulceration or recurrent cancer. The rectum itself was unremarkable. Upon retroflexion of scope, he does have moderate internal hemorrhoids. After this, the gas was suctioned out, colonoscope removed. Isidro tolerated the procedure quite well. Electronically Signed By: DARCY FINE MD 02/01/24 1606 PATIENT NAME: AGUILA BRITO OPERATIVE REPORT DATE OF : 57 REPORT #: [id number] PHYSICIAN: DARCY FINE MD PCP: MARIETTA PACHECO MD REPORT IS CONFIDENTIAL AND NOT TO BE RELEASED WITHOUT AUTHORIZATION [facility] [address] [place] [address] Signed RECOMMENDATIONS: I will see Isidro back in my office in 1-2 weeks to review his biopsy results. His pulmonary and cardiac functions are getting where we will be able to help him much longer than our small critical access hospital. He might consider having this done in [place], [place] where he is closer to his specialist. Although, Isidro told me he may not do any colonoscopies in the future. MD MIRELA Tolentino/KARONL /[id number] cc: Darcy Fine MD Patient Chart MD Dr. Paulina Lux Copies: DARCY FINE MD ~ Electronically Signed By: DARCY FINE MD 02/01/24 1606 PATIENT NAME: AGUILA BRITO OPERATIVE REPORT DATE OF : 57 REPORT #: [id number] PHYSICIAN: DARCY FINE MD PCP: MARIETTA PACHECO MD REPORT IS CONFIDENTIAL AND NOT TO BE RELEASED WITHOUT AUTHORIZATION
--- NOTE | 2024-02-03 11:51 | PATH ---
[facility] [address] [place], [place] [address] Signed SPECIMEN(S): A TRANSVERSE POLYP SPECIMEN(S): B DESCENDING POLYP SPECIMEN SOURCE: A. TRANSVERSE POLYP B. DESCENDING POLYP CLINICAL HISTORY: History of colon cancer/diverticulosis/polyp/hemorrhoids FINAL PATHOLOGIC DIAGNOSIS: A. Transverse polyp: - Tubular adenoma, negative for high-grade dysplasia. B. Descending polyp at 28 cm: - Hyperplastic polyp, negative for dysplasia. NA MICROSCOPIC EXAMINATION: Histologic sections of all submitted blocks are examined by light microscopy. These findings, together with the gross examination, support the pathologic diagnosis. GROSS DESCRIPTION: A. The specimen, labeled and designated "Abraham, transverse polyp," is received in formalin and consists of one ayala soft tissue fragment, 0.3 cm. Entirely submitted in (A1). B. The specimen, labeled and designated "Abraham, descending polyp at 28 cm," is received in formalin and consists of two ayala soft tissue fragments, ranging from 0.1-0.4 cm. Entirely submitted in (B1). VB (under the direct supervision of a pathologist) The Gross Description was prepared using a voice recognition system. The report was reviewed for accuracy; however, sound-alike word errors, addition and/or deletions may occur. If there is any question about this report, please contact Client Services. ADDITIONAL NOTES: Immunohistochemical and/or in situ hybridization studies if performed in this case included appropriate positive controls that reacted as expected. This test was developed and its performance characteristics determined by [facility]. It has not been cleared or approved by the U.S. Food and Drug Administration. The FDA has determined that PATIENT NAME: AGUILA BRITO PATHOLOGY DATE OF : 57 REPORT #: [id number] PHYSICIAN: ZEN PARMAR PCP: MARIETTA PACHECO MD REPORT IS CONFIDENTIAL AND NOT TO BE RELEASED WITHOUT AUTHORIZATION [address], [place] [address] Signed such clearance or approval is not necessary. This test is used for clinical purposes. It should not be regarded as investigational or for research. [facility] is certified under the Clinical Laboratory Improvement Amendments of 1988 (CLIA) as qualified to perform high complexity clinical laboratory testing. PERFORMING LABORATORY: Technical component was performed by [facility], [address] [place] [address] (CLIA# [id number]). Professional interpretation was performed by [facility] - [facility], [address] [place] [address] (CLIA#: [id number]). Diagnostician: Izabella Campbell MD Pathologist Electronically Signed 02/03/2024 Copies: ~ PATIENT NAME: AGUILA BRITO PATHOLOGY DATE OF : 57 REPORT #: [id number] PHYSICIAN: ZEN PARMAR PCP: MARIETTA PACHECO MD REPORT IS CONFIDENTIAL AND NOT TO BE RELEASED WITHOUT AUTHORIZATION
== END 2024-02-01 12:52 | disposition home or self-care (01) ==
LOC: DS 08:25
PROVIDERS: ATTEND Colon & Rectal Surgery
PROC: 0DBL8ZZ Excision of Transverse Colon, Via Natural or Artificial Opening Endoscopic (ICD-10-PCS; 2024-02-01)
PROC: 0DBG8ZZ Excision of Left Large Intestine, Via Natural or Artificial Opening Endoscopic (ICD-10-PCS; principal; 2024-02-01 11:10)
DX: Z12.11 Encounter for screening for malignant neoplasm of colon (principal); D12.3 Benign neoplasm of transverse colon; K63.5 Polyp of colon; K57.30 Diverticulosis of large intestine without perforation or abscess without bleeding; K64.8 Other hemorrhoids; E11.9 Type 2 diabetes mellitus without complications; E66.9 Obesity, unspecified; Z68.39 Body mass index [BMI] 39.0-39.9, adult; Z88.5 Allergy status to narcotic agent; Z88.8 Allergy status to other drugs, medicaments and biological substances; Z98.0 Intestinal bypass and anastomosis status; Z85.038 Personal history of other malignant neoplasm of large intestine
CPT/HCPCS: 00811; J2003; J2704; J7121

== ENCOUNTER 2024-02-17 11:09 | Emergency (ER) | payer MEDICARE, OTHER ==
[~2024-02-17] VITALS: Ht 182.9 cm; Wt 130.0 kg
[~2024-02-17 11:09] MED LIST changes: -IBLOOD GLUCOSE TEST STRIP 1 EA TEST VI PRN; -LACTATED RINGER'S 1,000 ML IV SCH; -LIDOCAINE HCL 1% 5 ML SDV INJ ONE
[2024-02-17] MEDS ORDERED: ALBUTEROL/IPRATROPIUM 3 ML NEB INH ONE ×2 (11:30→16:15)
[2024-02-17] MEDS ORDERED: FUROSEMIDE 40 MG/4 ML VIAL IV ONE (11:30)
[2024-02-17] MEDS ORDERED: methylPREDNISolone SOD SUCC 125 MG/2 ML VIAL IV ONE (11:30)
[2024-02-17 11:59] LABS: BASOPHILS 0.3 % (0-2); EOSINOPHILS 0.7 % (0-6); HEMATOCRIT 45.2 % (35.0-50.0); HEMOGLOBIN 14.8 g/dL (12.0-18.0); LYMPHOCYTES 7.6 % (24-44); MCH 30.5 (27-36); MCHC 32.8 g/dl (30-36); MCV 92.9 fl (81-99); MONOCYTES 7.8 % (0-12); NEUTROPHILS 83.6 % (39-80); PLATELET COUNT 206 K/uL (140-440); RBC 4.86 M/ul (4.3-5.7); RDW 14.3 (10.5-15.0)
[2024-02-17 12:08] LABS: INR 1.14 (0.80-1.30); PROTIME 14.2 Sec (11.2-14.2)
[2024-02-17 12:10] LABS: PARTIAL THROMBOPLASTIN TIME 28.7 Sec (22.9-41.3)
[2024-02-17 12:20] LABS: ALBUMIN 3.5 g/dL (3.4-5.0); ALBUMIN/GLOBULIN RATIO 0.81 (1.1-2.4); ANION GAP 5.7 (7-21); BILIRUBIN, TOTAL 1.5 ng/dL (0.2-1.0); BUN/CREATININE RATIO 10.75 (6.0-28.6); CALCIUM 9.2 mg/dL (8.5-10.1); CREATININE, SERUM 0.93 mg/dL (0.70-1.30); MAGNESIUM 1.7 mg/dL (1.8-2.4); POTASSIUM 3.7 mmol/L (3.5-5.1); PROTEIN, TOTAL 7.8 g/dL (6.4-8.2)
[2024-02-17] MEDS ORDERED: LIDOCAINE 2% VISCOUS 6 ML SYR MM ONE (12:30)
[2024-02-17] MEDS ORDERED: ASPIRIN 325 MG TAB PO ONE (12:45)
[2024-02-17] MEDS ORDERED: LORazepam 2 MG/ML VIAL IV ONE (13:15)
[2024-02-17 13:16] LABS: INFLUENZA B NAA NEGATIVE (NEGATIVE); RESPIRATORY SYNCYTIAL VIR NAA NEGATIVE (NEGATIVE)
[2024-02-17] MEDS ORDERED: HEPARIN SOD,PORK IN 0.45% NACL 500 ML IV SCH (14:45)
[2024-02-17] MEDS ORDERED: HEParin SOD (PORCINE) 5,000 UNIT/ML VIAL IV ONE (14:45)
[2024-02-17 15:56] LABS: PH, VENOUS 7.307 (7.31-7.41)
[2024-02-17 17:45] VITALS: BP 138/82
--- NOTE | 2024-02-18 19:29 | EKG ---
[facility] [address] [facility] [place] [address] Signed Normal sinus rhythm Normal ECG When compared with ECG of 21-DEC-2023 11:33, No significant change was found Confirmed by Nino Dawn MD ([id number]) on 02/18/2024 7:28:45 PM Electronically Signed By: NINO DAWN MD 02/18/241928 PATIENT NAME: HILARY BRITOJavon BOURNE Electrocardiogram DATE OF : 57 PHYSICIAN: NINO DAWN MD REPORT #: [id number] REPORT IS CONFIDENTIAL AND NOT TO BE RELEASED WITHOUT AUTHORIZATION
--- NOTE | 2024-02-18 19:32 | EKG ---
[facility] [address] [facility] [place] [facility] [place], [place] [address] Signed Normal sinus rhythm Normal ECG When compared with ECG of 17-FEB-2024 11:43, (Unconfirmed) No significant change was found Confirmed by Nino Dawn MD ([id number]) on 02/18/2024 7:32:17 PM Electronically Signed By: NINO DAWN MD 02/18/241931 PATIENT NAME: AGUILA BRITO Electrocardiogram DATE OF : 57 PHYSICIAN: NINO DAWN MD REPORT #: [id number] REPORT IS CONFIDENTIAL AND NOT TO BE RELEASED WITHOUT AUTHORIZATION
== END 2024-02-17 17:45 | disposition short-term general hospital (02) ==
LOC: ED 11:09
PROVIDERS: Emergency Medicine
DX: I21.4 Non-ST elevation (NSTEMI) myocardial infarction (principal); R09.02 Hypoxemia; I10 Essential (primary) hypertension; Z86.74 Personal history of sudden cardiac arrest; Z99.81 Dependence on supplemental oxygen; Z88.5 Allergy status to narcotic agent; Z88.8 Allergy status to other drugs, medicaments and biological substances; Z79.82 Long term (current) use of aspirin; Z79.899 Other long term (current) drug therapy
CPT/HCPCS: 36415; 51702; 71045; 71260; 80053; 82803; 83735; 83880; 84484; 85025; 85610; 85730; 87502; 93005; 93010; 94640; 99285-25; J1644; J1940; J2060; J2919; Q9967; U0002

== ENCOUNTER 2024-05-08 12:16 | Emergency (ER) | payer MEDICARE, OTHER ==
[~2024-05-08] VITALS: Ht 182.9 cm; Wt 125.0 kg
[2024-05-08] MEDS ORDERED: SODIUM CHLORIDE 0.9% 500 ML IV PRN (13:00)
[2024-05-08] MEDS ORDERED: DOXYCYCLINE MO100 M1 PO (13:09)
[2024-05-08 13:29] LABS: BASOPHILS 0.2 % (0-2); EOSINOPHILS 0.4 % (0-6); HEMATOCRIT 40.8 % (35.0-50.0); HEMOGLOBIN 13.1 g/dL (12.0-18.0); LYMPHOCYTES 9.7 % (24-44); MCH 30.1 (27-36); NEUTROPHILS 78.7 % (39-80); PLATELET COUNT 212 K/uL (140-440); RBC 4.35 M/ul (4.3-5.7); RDW 14.3 (10.5-15.0)
[2024-05-08 13:41] LABS: INR 1.21 (0.80-1.30); PROTIME 15.3 Sec (11.2-14.2)
[2024-05-08 13:44] LABS: ALBUMIN 3.4 g/dL (3.4-5.0); ALBUMIN/GLOBULIN RATIO 0.85 (1.1-2.4); ALKALINE PHOSPHATASE 66 U/L (46-116); ALT (SGPT) 14 U/L (14-59); AST (SGOT) 15 U/L (15-37); BILIRUBIN, TOTAL 1.1 mg/dL (0.2-1.0); BUN/CREATININE RATIO 18.91 (6.0-28.6); CALCIUM 9.2 mg/dL (8.5-10.1); CHLORIDE 97 mmol/L (98-107); CREATININE, SERUM 0.74 mg/dL (0.70-1.30); GLOMERULAR FILTRATION RATE,EST 99 mL/min (>60); PROTEIN, TOTAL 7.4 g/dL (6.4-8.2); UREA NITROGEN 14 mg/dL (7-18)
[2024-05-08 13:58] LABS: ANION GAP 3.99999 (7-21); CARBON DIOXIDE > 45 mmol/L (21-32)
[2024-05-08 14:12] LABS: ABO A; RH POSITIVE
[2024-05-08 14:13] LABS: ANTIBODY SCREEN NEGATIVE
[2024-05-08 15:15] VITALS: BP 150/83
== END 2024-05-08 15:15 | disposition home or self-care (01) ==
LOC: ED 12:16
PROVIDERS: Emergency Medicine
DX: K62.5 Hemorrhage of anus and rectum (principal); I10 Essential (primary) hypertension; Z79.82 Long term (current) use of aspirin; Z79.899 Other long term (current) drug therapy; Z88.5 Allergy status to narcotic agent; Z88.8 Allergy status to other drugs, medicaments and biological substances
CPT/HCPCS: 36415; 71045; 80053; 85025; 85610; 85730; 86850; 86900; 86901; 99283-25

== ENCOUNTER 2024-05-17 18:49 | Emergency (ER) | payer MEDICARE, OTHER ==
[~2024-05-17] VITALS: Ht 182.9 cm; Wt 140.8 kg
[~2024-05-17 18:49] MED LIST changes: +DOXYCYCLINE MO100 M1 PO
[2024-05-17] MEDS ORDERED: ALBUTEROL/IPRATROPIUM 3 ML NEB ONE (18:51)
[2024-05-17] MEDS ORDERED: FUROSEMIDE20 MG (19:04)
[2024-05-17 19:11] LABS: BASOPHILS 0.2 % (0-2); EOSINOPHILS 0.1 % (0-6); HEMATOCRIT 43.8 % (35.0-50.0); HEMOGLOBIN 13.4 g/dL (12.0-18.0); LYMPHOCYTES 7.2 % (24-44); MCHC 30.6 g/dl (30-36); MCV 98.1 fl (81-99); MONOCYTES 7.8 % (0-12); NEUTROPHILS 84.7 % (39-80); PLATELET COUNT 161 K/uL (140-440); RBC 4.47 M/ul (4.3-5.7); RDW 15.2 (10.5-15.0)
[2024-05-17 19:27] LABS: BASE EXCESS, BLOOD GAS 20.3 mmol/L (-2-2); HCO3, BLOOD GAS 54.4 mmol/L (22-26); O2 SATURATION, BLOOD GAS 94.7 % (95.0-100.0); PH, BLOOD GAS 7.23 (7.35-7.45); PO2, BLOOD GAS 70 mmHg (80-100); TOTAL CO2, BLOOD GAS 58.4
[2024-05-17 19:28] LABS: OXYGEN RECEIVED, BLOOD GAS 2L
[2024-05-17 19:32] LABS: ALBUMIN 3.6 g/dL (3.4-5.0); ALBUMIN/GLOBULIN RATIO 0.8 (1.1-2.4); BILIRUBIN, TOTAL 0.7 mg/dL (0.2-1.0); BUN/CREATININE RATIO 22.78 (6.0-28.6); CALCIUM 9.1 mg/dL (8.5-10.1); CREATININE, SERUM 0.79 mg/dL (0.70-1.30); POTASSIUM 4.6 mmol/L (3.5-5.1); PROTEIN, TOTAL 8.1 g/dL (6.4-8.2)
[2024-05-17 19:33] LABS: ANION GAP -1.4 (7-21)
[2024-05-17] MEDS ORDERED: ALBUTEROL/IPRATROPIUM 3 ML NEB INH ONE (19:45)
[2024-05-17] MEDS ORDERED: FUROSEMIDE 40 MG/4 ML VIAL IV ONE (19:45)
[2024-05-17 21:20] LABS: PH, VENOUS 7.339 (7.31-7.41)
[2024-05-18] MEDS ORDERED: CEFTRIAXONE SODIUM 2 GM VIAL ONE (01:22)
[2024-05-18] MEDS ORDERED: FUROSEMIDE 40 MG/4 ML VIAL IV ONE (01:30)
[2024-05-18] MEDS ORDERED: POTASSIUM CHLORIDE 10 MEQ TABCR PO ONE (01:30)
[2024-05-18] MEDS ORDERED: CEFTRIAXONE SODIUM 2 GM in SODIUM CHLORIDE 0.9% 100 ML IV ONE (01:30)
[2024-05-18] MEDS ORDERED: methylPREDNISolone SOD SUCC 125 MG/2 ML VIAL IV ONE (01:30)
[2024-05-18 02:16] LABS: PH, VENOUS 7.351 (7.31-7.41)
[2024-05-18 03:45] VITALS: BP 117/86
--- NOTE | 2024-05-18 11:52 | EKG ---
[facility] [address] [facility] [place] [address] Signed Normal sinus rhythm Normal ECG No previous ECGs available Confirmed by Nino Dawn MD ([id number]) on 05/18/2024 11:52:31 AM Electronically Signed By: NINO DAWN MD 05/18/24 1152 PATIENT NAME: AGUILA BRITO Electrocardiogram DATE OF : 57 PHYSICIAN: NINO DAWN MD REPORT #: [id number] REPORT IS CONFIDENTIAL AND NOT TO BE RELEASED WITHOUT AUTHORIZATION
== END 2024-05-18 03:45 | disposition short-term general hospital (02) ==
LOC: ED 18:49
PROVIDERS: Emergency Medicine; Internal Medicine
DX: J96.21 Acute and chronic respiratory failure with hypoxia (principal); R79.89 Other specified abnormal findings of blood chemistry; I10 Essential (primary) hypertension; Z99.81 Dependence on supplemental oxygen; Z88.5 Allergy status to narcotic agent; Z88.8 Allergy status to other drugs, medicaments and biological substances; Z79.82 Long term (current) use of aspirin; Z79.899 Other long term (current) drug therapy
CPT/HCPCS: 36415; 36600; 71045; 80053; 82803; 83880; 84484; 85025; 85379; 93005; 93010; 94640; 94660; 94799; 96374; 96375; 96376; 99291; 99292; A6590; A9270; J0696; J1940; J2919

== ENCOUNTER 2024-11-08 07:44 | Emergency (ER) | payer MEDICARE, OTHER ==
[~2024-11-08] VITALS: Ht 182.9 cm; Wt 124.0 kg
[~2024-11-08 07:44] MED LIST changes: +FUROSEMIDE20 MG
[2024-11-08] MEDS ORDERED: BUSPIRONE HCL15 MG PO (07:57)
[2024-11-08] MEDS ORDERED: POTASSIUM CHLO20 ME2 PO (07:57)
[2024-11-08 08:28] VITALS: BP 169/104
== END 2024-11-08 08:25 | disposition home or self-care (01) ==
LOC: ED 07:44
DX: L98.9 Disorder of the skin and subcutaneous tissue, unspecified (principal); I10 Essential (primary) hypertension; Z85.038 Personal history of other malignant neoplasm of large intestine; Z88.5 Allergy status to narcotic agent; Z88.8 Allergy status to other drugs, medicaments and biological substances; Z79.82 Long term (current) use of aspirin; Z79.899 Other long term (current) drug therapy
CPT/HCPCS: 99282